=== PATIENT | male | born 1970 | race Caucasian/White ===

== ENCOUNTER 2018-02-23 00:55 | Outpatient (CLI) | payer BC, SELFPAY | END 2018-02-23 01:15 | PROVIDERS: PCP Family Medicine; Visit Provider Family Medicine | DX: R69 Illness, unspecified (principal) | CPT/HCPCS: 36415; 80048; 82550; 85652; 82085; 82607; 83735; 86140; 87476 ==

== ENCOUNTER 2018-02-23 09:08 | Outpatient (CLI) | payer BC, SELFPAY ==
[2018-02-23 13:02] LABS: Anion Gap 8.4 mmol/L (3-11); BUN 17 mg/dL (7-18); C-Reactive Protein 0.07 mg/dL (0.0-0.3); CO2 28.6 mmol/L (21.0-32.0); CREATININE 1.08 mg/dL (0.70-1.30); Calcium 9.1 mg/dL (8.5-10.1); Chloride 103 mmol/L (98-107); Creatine Kinase 92 U/L (39-308); Glucose 102 mg/dL (70-100); Potassium 4.8 mmol/L (3.5-5.1); Sodium 140 mmol/L (136-145)
[2018-02-23 13:37] LABS: ESR 8 MM/HR (0-15)
[2018-02-23 13:48] LABS: Vitamin B12 377 pg/mL (193-986)
[2018-02-24 14:28] LABS: Aldolase 2.9 U/L (<7.7)
== END 2018-02-23 09:28 ==
PROVIDERS: PCP Family Medicine; Visit Provider Family Medicine
DX: M79.10 Myalgia, unspecified site (principal); M79.2 Neuralgia and neuritis, unspecified; M35.8 Other specified systemic involvement of connective tissue
CPT/HCPCS: 36415; 80048; 82550; 85652; 82085; 82607; 83735; 86140; 87476

== ENCOUNTER 2018-03-03 08:15 | Emergency (ER) | payer BC, SELFPAY ==
[2018-03-03 08:20] VITALS: BP 115/73; PULSE 63; RESP 15; TEMP 36.5; O2SAT 97
--- NOTE | 2018-03-03 08:35 | DI.RAD_ITS ---
SYMPTOM/DIAGNOSIS: LT GREAT TOE PAIN LEFT FOOT: Three views. There is a nondisplaced fracture through the shaft of the proximal phalanx of the left great toe. The fracture does not appear to involve the joint spaces. No other fracture or dislocation is seen. There is soft tissue swelling about the great toe. No radiopaque foreign bodies are seen in the soft tissues. IMPRESSION: Nondisplaced fracture involving the proximal phalanx of the left great toe.
--- NOTE | 2018-03-03 08:36 | W.ED.GENAD ---
Discharge Plan Disposition Patient Disposition: HOME Condition: Good Discharge Details Chief Complaint: Orthopedic Clinical Impression: Closed fracture of left great toe Primary Care Provider: David Scott ED Provider: Bonilla Culp Home Meds and New Rx's Prescriptions: Continue zolmitriptan [Zomig] 5 MG tablet 5 mg PO DIRECTED Qty: 9 RF: 5 celecoxib [Celebrex] 200 MG capsule 200 mg PO DAILY Qty: 90 RF: 4 nystatin-triamcinolone 15 GM cream 1 dorinda Topical BID PRNQty: 3 RF: 4 gabapentin 300 MG capsule 300 mg PO HS Qty: 90 RF: 3 zolpidem 10 MG tablet 10 mg PO HS PRNQty: 30 RF: 1 metaxalone [Skelaxin] 800 mg tablet 800 mg PO QID PRN (Reason: back pain) Qty: 360 RF: 4 Discharge Instructions Instructions: Toe Fracture (ED) Discharge Data Discharge Physician: Bonilla Culp Medical Decision Making patient states over a week ago stubbed his left great toe on stairs, denies falling or other injuries. 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 Suspect contusion but will xray to eval for fx/dislocation. No redness warmth or swelling to suggest infection at this time xray shows lucency at the base of the great toe which could represent fx. Offered hard sole shoe vs sammie taping and he chose sammie taping. ADvised weight bearing as tolerated, nsaids and tylenol Differential Diagnosis fracture, contusion Imaging Data Radiologic Study: Attestation: I personally reviewed and interpreted this imaging study as follows: Imaging: X-Ray My impression: great toe fx HPI General Mode of arrival: ambulatory. Date/Time Provider Initiated Documentation: 03/03/18 08:32. Limitations to Documentation: no limitations. Information obtained by: patient. History of Present Illness 47 year old M presents to the emergency department with the chief complaint of left great toe pain, described as moderate, with intensity rated at 5. Quality is described as aching, and is localized to the left and lower extremity. Patient reports no radiation. Patient started experiencing this week(s) (1) and it has been constant. Rest improves symptom(s), Movement worsens symptoms . Patient notes no other symptoms.. Patient did receive the following treatments prior to arrival, none Related Data Home Medications Medication Instructions Recorded Confirmed zolmitriptan [Zomig] 5 mg PO DIRECTED #9 tab-cap 03/17/15 03/03/18 celecoxib [Celebrex] 200 mg PO DAILY #90 tab-cap 12/26/16 03/03/18 nystatin-triamcinolone 1 dorinda TOPICAL BID PRN #3 ea 01/30/17 03/03/18 gabapentin 300 mg PO HS #90 tab-cap 08/26/17 03/03/18 zolpidem 10 mg PO HS PRN #30 tab-cap 12/15/17 03/03/18 metaxalone 800 mg tablet 800 mg PO QID PRN #360 tab-cap 02/20/18 03/03/18 Previous Rx's Medication Instructions Recorded gabapentin 300 mg PO HS #90 tab-cap 08/26/17 metaxalone 800 mg tablet 800 mg PO QID PRN #360 tab-cap 02/20/18 Allergies Allergy/AdvReac Type Severity Reaction Status Date / Time No Known Allergies Allergy Unverified 03/03/18 08:26 General Stated Complaint: Orthopedic RORY: 4 Review of Systems Review of Systems All systems reviewed & are unremarkable except as noted in HPI and below Constitutional Denies chills, Denies fever(s) and Denies weakness Eyes Denies loss of vision ENT Denies change in voice Cardiovascular Denies chest pain and Denies dyspnea Respiratory Denies dyspnea Gastrointestinal Denies abdominal pain, Denies nausea and Denies vomiting Genitourinary Denies dysuria Musculoskeletal Denies joint swelling Integumentary/Breasts Denies rash Neurologic Denies loss of vision and Denies weakness Psychiatric Denies depression Endocrine Denies cold intolerance and Denies heat intolerance Allergic/Immunologic Denies urticaria PFSH Family History Mother No problems noted. Father Cerebrovascular accident Sister No problems noted. Brother No problems noted. Maternal Grandfather Heart disease Hyperlipidemia Paternal Grandfather Heart disease Maternal Grandmother Lung cancer Paternal Grandmother Hyperlipidemia Breast cancer Brother No problems noted. Brother No problems noted. Son No problems noted. Daughter No problems noted. 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 [employer] pets and animals: Yes pets and animals: dog(s) frequency: does not exercise Smoking/Tobacco Use Status: Former Tobacco Use passive smoking exposure: No alcohol intake: current alcohol intake frequency: a few times a week Alcohol type: beer substance use type: does not use daryl/restoration: Shinto special daryl needs: No Surgical History AVM (~02/1991) Exam Const General: no acute distress Orientation: alert HENMT Head: normal to inspection Ears: external ears normal General nose exam: external nose normal Mouth: moist mucous membranes Eyes General: appearance normal, both eyes and all related structures Neck Neck: normal visual inspection Resp Effort & Inspection: normal respiratory effort and able to speak in complete sentences Cardio Rate: regular rate Skin General skin exam: no rashes or lesions noted Neuro General: alert and oriented x3 Extrem General: full ROM, normal capillary refill and other (pain at base of great toe, no warmth swelling or redness) Psych Mental Status: mental status grossly normal Course Vital Signs Temperature 36.5 C 03/03/18 08:20 Pulse 63 03/03/18 08:20 Respiratory Rate 15 03/03/18 08:20 Blood Pressure 115/73 03/03/18 08:20 Pulse Oximetry 97 03/03/18 08:20 Temperature 36.5 C 03/03/18 08:20 Temperature Source Temporal Artery Scan 03/03/18 08:20 Pulse 63 03/03/18 08:20 Respiratory Rate 15 03/03/18 08:20 Respiratory Effort Non-Labored 03/03/18 08:24 Blood Pressure 115/73 03/03/18 08:20 Blood Pressure Position Sitting 03/03/18 08:20 Pulse Oximetry 97 03/03/18 08:20 Oxygen Delivery Method Room Air 03/03/18 08:20 Oxygen Flow Rate 0 03/03/18 08:20 Pain Level 3 03/03/18 08:28
--- NOTE | 2018-03-03 08:39 | ED.GENADUL_ITS ---
Discharge Plan Disposition Patient Disposition: HOME Condition: Good Discharge Details Chief Complaint: Orthopedic Clinical Impression: Closed fracture of left great toe Primary Care Provider: David Scott ED Provider: Bonilla Culp Home Meds and New Rx's Prescriptions: Continue zolmitriptan [Zomig] 5 MG tablet 5 mg PO DIRECTED Qty: 9 RF: 5 celecoxib [Celebrex] 200 MG capsule 200 mg PO DAILY Qty: 90 RF: 4 nystatin-triamcinolone 15 GM cream 1 dorinda Topical BID PRNQty: 3 RF: 4 gabapentin 300 MG capsule 300 mg PO HS Qty: 90 RF: 3 zolpidem 10 MG tablet 10 mg PO HS PRNQty: 30 RF: 1 metaxalone [Skelaxin] 800 mg tablet 800 mg PO QID PRN (Reason: back pain) Qty: 360 RF: 4 Discharge Instructions Instructions: Toe Fracture (ED) Discharge Data Discharge Physician: Bonilla Culp Medical Decision Making patient states over a week ago stubbed his left great toe on stairs, denies falling or other injuries. 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 Suspect contusion but will xray to eval for fx/ dislocation. No redness warmth or swelling to suggest infection at this time xray shows lucency at the base of the great toe which could represent fx. Offered hard sole shoe vs sammie taping and he chose sammie taping. ADvised weight bearing as tolerated, nsaids and tylenol Differential Diagnosis fracture, contusion Imaging Data Radiologic Study: Attestation: I personally reviewed and interpreted this imaging study as follows: Imaging: X-Ray My impression: great toe fx HPI General Mode of arrival: ambulatory . Date/Time Provider Initiated Documentation: 03/03/18 08:32 . Limitations to Documentation: no limitations . Information obtained by: patient . History of Present Illness 47 year old M presents to the emergency department with the chief complaint of left great toe pain, described as moderate, with intensity rated at 5. Quality is described as aching, and is localized to the left and lower extremity. Patient reports no radiation. Patient started experiencing this week(s) (1) and it has been constant. Rest improves symptom(s), Movement worsens symptoms . Patient notes no other symptoms.. Patient did receive the following treatments prior to arrival, none Related Data Home Medications Medication Instructions Recorded Confirmed zolmitriptan [Zomig] 5 mg PO DIRECTED #9 tab-cap 03/17/15 03/03/18 celecoxib [Celebrex] 200 mg PO DAILY #90 tab-cap 12/26/16 03/03/18 nystatin-triamcinolone 1 dorinda TOPICAL BID PRN #3 ea 01/30/17 03/03/18 gabapentin 300 mg PO HS #90 tab-cap 08/26/17 03/03/18 zolpidem 10 mg PO HS PRN #30 tab-cap 12/15/17 03/03/18 metaxalone 800 mg tablet 800 mg PO QID PRN #360 tab-cap 02/20/18 03/03/18 Previous Rx's Medication Instructions Recorded gabapentin 300 mg PO HS #90 tab-cap 08/26/17 metaxalone 800 mg tablet 800 mg PO QID PRN #360 tab-cap 02/20/18 Allergies Allergy/AdvReac Type Severity Reaction Status Date / Time No Known Allergies Allergy Unverified 03/03/18 08:26 General Stated Complaint: Orthopedic RORY: 4 Review of Systems Review of Systems All systems reviewed & are unremarkable except as noted in HPI and below Constitutional Denies chills, Denies fever(s) and Denies weakness Eyes Denies loss of vision ENT Denies change in voice Cardiovascular Denies chest pain and Denies dyspnea Respiratory Denies dyspnea Gastrointestinal Denies abdominal pain, Denies nausea and Denies vomiting Genitourinary Denies dysuria Musculoskeletal Denies joint swelling Integumentary/Breasts Denies rash Neurologic Denies loss of vision and Denies weakness Psychiatric Denies depression Endocrine Denies cold intolerance and Denies heat intolerance Allergic/Immunologic Denies urticaria PFSH Family History Mother No problems noted. Father Cerebrovascular accident Sister No problems noted. Brother No problems noted. Maternal Grandfather Heart disease Hyperlipidemia Paternal Grandfather Heart disease Maternal Grandmother Lung cancer Paternal Grandmother Hyperlipidemia Breast cancer Brother No problems noted. Brother No problems noted. Son No problems noted. Daughter No problems noted. Social History household members: other details: 4 current occupational status: employed current occupation: [employer] pets and animals: Yes pets and animals: dog(s) frequency: does not exercise Smoking/Tobacco Use Status: Former Tobacco Use passive smoking exposure: No alcohol intake: current alcohol intake frequency: a few times a week Alcohol type: beer substance use type: does not use daryl/quaker: Zoroastrian special daryl needs: No Surgical History AVM (~02/1991) Exam Const General: no acute distress Orientation: alert HENMT Head: normal to inspection Ears: external ears normal General nose exam: external nose normal Mouth: moist mucous membranes Eyes General: appearance normal, both eyes and all related structures Neck Neck: normal visual inspection Resp Effort & Inspection: normal respiratory effort and able to speak in complete sentences Cardio Rate: regular rate Skin General skin exam: no rashes or lesions noted Neuro General: alert and oriented x3 Extrem General: full ROM, normal capillary refill and other (pain at base of great toe , no warmth swelling or redness) Psych Mental Status: mental status grossly normal Course Vital Signs Temperature 36.5 C 03/03/18 08:20 Pulse 63 03/03/18 08:20 Respiratory Rate 15 03/03/18 08:20 Blood Pressure 115/73 03/03/18 08:20 Pulse Oximetry 97 03/03/18 08:20 Temperature 36.5 C 03/03/18 08:20 Temperature Source Temporal Artery Scan 03/03/18 08:20 Pulse 63 03/03/18 08:20 Respiratory Rate 15 03/03/18 08:20 Respiratory Effort Non-Labored 03/03/18 08:24 Blood Pressure 115/73 03/03/18 08:20 Blood Pressure Position Sitting 03/03/18 08:20 Pulse Oximetry 97 03/03/18 08:20 Oxygen Delivery Method Room Air 03/03/18 08:20 Oxygen Flow Rate 0 03/03/18 08:20 Pain Level 3 03/03/18 08:28
== END 2018-03-03 09:10 | disposition home or self-care (01) ==
PROVIDERS: Emergency Provider Emergency Medicine; PCP Family Medicine
DX: J44.1 Chronic obstructive pulmonary disease with (acute) exacerbation (principal); E11.9 Type 2 diabetes mellitus without complications; Z79.84 Long term (current) use of oral hypoglycemic drugs; I10 Essential (primary) hypertension
CPT/HCPCS: 36415; 93005; 99285; 73630; 93010

== ENCOUNTER 2018-05-30 04:25 | Emergency (ER) | payer BC, SELFPAY ==
[2018-05-30 04:31] VITALS: BP 112/60; PULSE 62; RESP 15; TEMP 37; O2SAT 98
--- NOTE | 2018-05-30 05:24 | W.ED.GENAD ---
Discharge Plan Disposition Patient Disposition: HOME Condition: Good Discharge Details Chief Complaint: Laceration Clinical Impression: Chin laceration, Viral illness, Orthostatic syncope Primary Care Provider: David Scott ED Provider: Tom Roach Ebro Meds and New Rx's Prescriptions: Continued bupropion HCl 150 mg tablet extended release 24 hr 150 mg PO QAM Qty: 30 RF: 3 zolpidem 10 mg tablet 10 mg PO HS PRN (Reason: insomnia) Qty: 30 RF: 1 zolmitriptan [Zomig] 5 MG tablet 5 mg PO DIRECTED Qty: 9 RF: 5 celecoxib [Celebrex] 200 MG capsule 200 mg PO DAILY Qty: 90 RF: 4 nystatin-triamcinolone 15 GM cream 1 dorinda Topical BID PRNQty: 3 RF: 4 metaxalone [Skelaxin] 800 mg tablet 800 mg PO QID PRN (Reason: back pain) Qty: 360 RF: 4 Discharge Instructions Instructions: Syncope (ED), Facial Laceration (ED) Additional Instructions: Continue to rest and take it easy over the weekend. Push fluids to stay hydrated. May continue [id number] cold medication as needed. Avoid shaving in the area of the laceration for the next five days. Watch for signs of infection which include increasing redness, pain, swelling, drainage. Follow-up with primary care next week if not feeling better. Return to ED if mental status changes, neurologic changes, chest pain, shortness of breath, further syncope, other concerns. Stand Alone Forms: Work Release Referrals: David Scott MD [Primary Care Provider] - Medical Decision Making Patient here with chin laceration that is fairly minor and amenable to skin adhesive. Please see procedure note. Patient tetanus status updated. Laceration sustained during a brief syncopal event. He has been ill for the last week. He is orthostatic here. We will place an IV and give a liter of fluid. Check EKG and basic labs. Suspect syncope related to orthostasis. Basic laboratory studies are fine. Repeat orthostatics after a liter of fluids are now normal. Patient can be discharged home to continue oral hydration, rest, [id number] cold medicine as needed. Told to watch for signs of infection. Follow-up with primary care next week as needed. Return to ED if mental status changes, neurologic changes, further syncope, chest pain, shortness of breath. Medical Records Medical records reviewed: Yes I reviewed the patient's medical records. Lab Data Lab results reviewed: Yes I reviewed the patient's lab results. ECG Data Attestation: I personally reviewed and interpreted this ECG (s) as follows: Prior ECG tracings: not available for review Interpretation: Sinus rhythm at a rate of 75. Normal axis and intervals. No acute ST changes. Normal EKG. HPI General Mode of arrival: ambulatory. Date/Time Provider Initiated Documentation: 05/30/18 04:53. Limitations to Documentation: no limitations. Information obtained by: patient. HPI Narrative: Patient presents to ED with small chin laceration. Patient reports being ill with intermittent fevers and chills all week. He had about a days worth of diarrhea which has resolved. He now has a head cold with congestion, sore throat, cough. He does not have chest pain or shortness of breath. He got up and was coughing up some phlegm. He then got lightheaded and thinks he maybe blacked out for a second. Hit his chin on something on the way down and has a little laceration. He has no headache. He has chronic unchanged back pain. He has no abdominal pain. He thinks he has been eating and drinking enough. He denies vomiting or diarrhea at this point. They were unable to get the bleeding to stop for a little bit and thought that the lac might need some stitches and came in for evaluation. Related Data Home Medications Medication Instructions Recorded Confirmed zolmitriptan [Zomig] 5 mg PO DIRECTED #9 tab-cap 03/17/15 05/30/18 celecoxib [Celebrex] 200 mg PO DAILY #90 tab-cap 12/26/16 05/30/18 nystatin-triamcinolone 1 dorinda TOPICAL BID PRN #3 ea 01/30/17 05/30/18 metaxalone 800 mg tablet 800 mg PO QID PRN #360 tab-cap 02/20/18 05/30/18 bupropion HCl XL 150 mg 24 hr 150 mg PO QAM #30 tab 04/24/18 05/30/18 tablet, extended release zolpidem 10 mg tablet 10 mg PO HS PRN #30 tab-cap 05/08/18 05/30/18 Previous Rx's Medication Instructions Recorded metaxalone 800 mg tablet 800 mg PO QID PRN #360 tab-cap 02/20/18 bupropion HCl XL 150 mg 24 hr 150 mg PO QAM #30 tab 04/24/18 tablet, extended release zolpidem 10 mg tablet 10 mg PO HS PRN #30 tab-cap 05/08/18 Allergies Allergy/AdvReac Type Severity Reaction Status Date / Time sertraline AdvReac Intermediate Diarrhea Verified 05/30/18 04:40 General Stated Complaint: Laceration RORY: 3 Review of Systems Constitutional Denies body ache(s), Reports chills, Reports fatigue, Reports fever(s), Denies headache(s), Reports malaise, Reports poor appetite and Reports weakness Eyes Denies eye discharge and Denies eye pain ENT Denies vertigo, Denies dizziness, Denies otalgia, Denies facial pain, Denies headache(s), Reports nasal congestion, Denies neck pain, Denies sinus pain, Reports sinus pressure and Reports sore throat Cardiovascular Denies chest pain, Denies diaphoresis, Reports syncope, Denies edema, Reports lightheadedness, Denies palpitations and Denies dyspnea Respiratory Denies chest congestion, Reports cough, Denies dyspnea and Denies wheezing Gastrointestinal Denies abdominal pain, Denies diarrhea, Denies nausea and Denies vomiting Genitourinary Denies hematuria, Denies dysuria and Denies flank pain Musculoskeletal Denies abnormal gait, Reports back pain (chronic problem/unchanged), Denies myalgias, Denies arthralgias, Denies neck pain and Denies numbness Integumentary/Breasts Denies erythema, Denies rash and Reports wounds Neurologic Denies abnormal speech, Denies abnormal gait, Denies confusion, Denies vertigo, Denies dizziness, Reports syncope, Denies headache(s), Denies focal weakness, Denies numbness, Denies sensory deficit and Reports weakness Psychiatric Denies confusion Endocrine Reports fatigue and Denies palpitations Allergic/Immunologic Denies wheezing FOR[facility] Medical History Major depression (Chronic) Migraine (Chronic 12/14/09) Low back pain (Chronic) Surgical History Malignant neoplasm of skin (Inactive) Arteriovenous malformation (Inactive 04/03/90) Social History household members: other details: 4 current occupational status: employed current occupation: [employer] pets and animals: Yes pets and animals: dog(s) frequency: does not exercise duration: 30-45 minutes/day Smoking/Tobacco Use Status: Former Tobacco Use passive smoking exposure: No alcohol intake: current alcohol intake frequency: a few times a week Alcohol type: beer substance use type: does not use daryl/jehovah's witness: Jew special daryl needs: No Exam Const General: cooperative, comfortable and no acute distress Orientation: alert and oriented x3 HENMT Head: normocephalic and atraumatic Ears: external ears normal and TM's normal bilaterally General nose exam: external nose normal Face and sinus: laceration (under chin 0.5 cm) and no tenderness Mouth: oral mucosae normal and oropharynx normal Throat: posterior oropharynx normal Eyes Pupils: PERRL EOM: EOM intact bilaterally Neck Neck: normal visual inspection, full ROM, trachea midline and supple Resp Effort & Inspection: normal respiratory effort Auscultation: clear to auscultation bilaterally Cardio Rate: regular rate Rhythm: regular rhythm Heart Sounds: S1 normal and S2 normal GI Palpation: soft and nontender Back/Spine/Pelvis Cervical Spine: cervical ROM normal, No pain with cervical ROM and No cervical spinal tenderness Skin Trauma: laceration Neuro General: alert, oriented x3, gait normal, no focal motor deficits and CN's II-XI intact bilaterally Cognition: normal cognition Speech: speech normal Extrem General: normal to inspection, full ROM and no clubbing, cyanosis or edema Course Vital Signs Temperature 98.6 F 05/30/18 04:31 Pulse 62 05/30/18 04:31 Respiratory Rate 15 05/30/18 04:31 Blood Pressure 112/60 05/30/18 04:31 Pulse Oximetry 98 05/30/18 04:31 Temperature 98.6 F 05/30/18 04:31 Temperature Source Temporal Artery Scan 05/30/18 04:31 Pulse 62 05/30/18 04:31 Respiratory Rate 15 05/30/18 04:31 Respiratory Effort 05/30/18 04:35 Blood Pressure 112/60 05/30/18 04:31 Blood Pressure Position Supine 05/30/18 04:31 Pulse Oximetry 98 05/30/18 04:31 Oxygen Delivery Method Room Air 05/30/18 04:31 Oxygen Flow Rate 0 05/30/18 04:31 Pain Level 0 05/30/18 04:35 Procedures Laceration Laceration 1: Site: face (under chin) Size (cm): 0.5 Description: linear Depth: simple, single layer Pre-repair: irrigated extensively Skin layer closed with: other (skin glue)
[2018-05-30] MEDS: Lactated Ringers 1,000 ML 1000 ML IV (05:28)
[2018-05-30] MEDS: Tetanus & Diphtheria Tox,ADULT 0.5 ML VIAL IM (05:29)
[2018-05-30 05:33] LABS: HCT 43.1 % (40.0-50.0); HGB 14.9 g/dL (13.5-17.5); Mean Corp. HGB Concentration 34.6 g/dL (32.0-36.0); Mean Corpuscular Hemoglobin 31.2 pg (27.0-33.0); Mean Corpuscular Volume 90.4 fL (80-95); Mean Platelet Volume 9.3 fL (8.0-11.0); Platelet Count 229 x1000/uL (130-400); RBC 4.77 m/cumm (4.50-6.00); RBC Distribution Width 12.4 % (11.8-14.1); White Blood Cell Count 7.93 k/cumm (4.4-10.8)
--- NOTE | 2018-05-30 05:39 | ED.GENADUL_ITS ---
Discharge Plan Disposition Patient Disposition: HOME Condition: Good Discharge Details Chief Complaint: Laceration Clinical Impression: Chin laceration, Viral illness, Orthostatic syncope Primary Care Provider: David Scott ED Provider: Tom Roach [place] Meds and New Rx's Prescriptions: Continued bupropion HCl 150 mg tablet extended release 24 hr 150 mg PO QAM Qty: 30 RF: 3 zolpidem 10 mg tablet 10 mg PO HS PRN (Reason: insomnia) Qty: 30 RF: 1 zolmitriptan [Zomig] 5 MG tablet 5 mg PO DIRECTED Qty: 9 RF: 5 celecoxib [Celebrex] 200 MG capsule 200 mg PO DAILY Qty: 90 RF: 4 nystatin-triamcinolone 15 GM cream 1 dorinda Topical BID PRNQty: 3 RF: 4 metaxalone [Skelaxin] 800 mg tablet 800 mg PO QID PRN (Reason: back pain) Qty: 360 RF: 4 Discharge Instructions Instructions: Syncope (ED), Facial Laceration (ED) Additional Instructions: Continue to rest and take it easy over the weekend. Push fluids to stay hydrated. May continue mbpb-[id number] cold medication as needed. Avoid shaving in the area of the laceration for the next five days. Watch for signs of infection which include increasing redness, pain, swelling, drainage. Follow-up with primary care next week if not feeling better. Return to ED if mental status changes, neurologic changes, chest pain, shortness of breath, further syncope, other concerns. Stand Alone Forms: Work Release Referrals: David Scott MD [Primary Care Provider] - Medical Decision Making Patient here with chin laceration that is fairly minor and amenable to skin adhesive. Please see procedure note. Patient tetanus status updated. Laceration sustained during a brief syncopal event. He has been ill for the last week. He is orthostatic here. We will place an IV and give a liter of fluid. Check EKG and basic labs. Suspect syncope related to orthostasis. Basic laboratory studies are fine. Repeat orthostatics after a liter of fluids are now normal. Patient can be discharged home to continue oral hydration, rest, [id number] cold medicine as needed. Told to watch for signs of infection. Follow-up with primary care next week as needed. Return to ED if mental status changes, neurologic changes, further syncope, chest pain, shortness of breath. Medical Records Medical records reviewed: Yes I reviewed the patient's medical records. Lab Data Lab results reviewed: Yes I reviewed the patient's lab results. ECG Data Attestation: I personally reviewed and interpreted this ECG (s) as follows: Prior ECG tracings: not available for review Interpretation: Sinus rhythm at a rate of 75. Normal axis and intervals. No acute ST changes. Normal EKG. HPI General Mode of arrival: ambulatory . Date/Time Provider Initiated Documentation: 05/30/18 04:53 . Limitations to Documentation: no limitations . Information obtained by: patient . HPI Narrative: Patient presents to ED with small chin laceration. Patient reports being ill with intermittent fevers and chills all week. He had about a days worth of diarrhea which has resolved. He now has a head cold with congestion, sore throat, cough. He does not have chest pain or shortness of breath. He got up and was coughing up some phlegm. He then got lightheaded and thinks he maybe blacked out for a second. Hit his chin on something on the way down and has a little laceration. He has no headache. He has chronic unchanged back pain. He has no abdominal pain. He thinks he has been eating and drinking enough. He denies vomiting or diarrhea at this point. They were unable to get the bleeding to stop for a little bit and thought that the lac might need some stitches and came in for evaluation. Related Data Home Medications Medication Instructions Recorded Confirmed zolmitriptan [Zomig] 5 mg PO DIRECTED #9 tab-cap 03/17/15 05/30/18 celecoxib [Celebrex] 200 mg PO DAILY #90 tab-cap 12/26/16 05/30/18 nystatin-triamcinolone 1 dorinda TOPICAL BID PRN #3 ea 01/30/17 05/30/18 metaxalone 800 mg tablet 800 mg PO QID PRN #360 tab-cap 02/20/18 05/30/18 bupropion HCl XL 150 mg 24 hr 150 mg PO QAM #30 tab 04/24/18 05/30/18 tablet, extended release zolpidem 10 mg tablet 10 mg PO HS PRN #30 tab-cap 05/08/18 05/30/18 Previous Rx's Medication Instructions Recorded metaxalone 800 mg tablet 800 mg PO QID PRN #360 tab-cap 02/20/18 bupropion HCl XL 150 mg 24 hr 150 mg PO QAM #30 tab 04/24/18 tablet, extended release zolpidem 10 mg tablet 10 mg PO HS PRN #30 tab-cap 05/08/18 Allergies Allergy/AdvReac Type Severity Reaction Status Date / Time sertraline AdvReac Intermediate Diarrhea Verified 05/30/18 04:40 General Stated Complaint: Laceration RORY: 3 Review of Systems Constitutional Denies body ache(s), Reports chills, Reports fatigue, Reports fever(s), Denies headache(s), Reports malaise, Reports poor appetite and Reports weakness Eyes Denies eye discharge and Denies eye pain ENT Denies vertigo, Denies dizziness, Denies otalgia, Denies facial pain, Denies headache(s), Reports nasal congestion, Denies neck pain, Denies sinus pain, Reports sinus pressure and Reports sore throat Cardiovascular Denies chest pain, Denies diaphoresis, Reports syncope, Denies edema, Reports lightheadedness, Denies palpitations and Denies dyspnea Respiratory Denies chest congestion, Reports cough, Denies dyspnea and Denies wheezing Gastrointestinal Denies abdominal pain, Denies diarrhea, Denies nausea and Denies vomiting Genitourinary Denies hematuria, Denies dysuria and Denies flank pain Musculoskeletal Denies abnormal gait, Reports back pain (chronic problem/unchanged), Denies myalgias, Denies arthralgias, Denies neck pain and Denies numbness Integumentary/Breasts Denies erythema, Denies rash and Reports wounds Neurologic Denies abnormal speech, Denies abnormal gait, Denies confusion, Denies vertigo, Denies dizziness, Reports syncope, Denies headache(s), Denies focal weakness, Denies numbness, Denies sensory deficit and Reports weakness Psychiatric Denies confusion Endocrine Reports fatigue and Denies palpitations Allergic/Immunologic Denies wheezing [facility] Medical History Major depression (Chronic) Migraine (Chronic 12/14/09) Low back pain (Chronic) Surgical History Malignant neoplasm of skin (Inactive) Arteriovenous malformation (Inactive 04/03/90) Social History household members: other details: 4 current occupational status: employed 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 [employer] pets and animals: Yes pets and animals: dog(s) frequency: does not exercise duration: 30-45 minutes/day Smoking/Tobacco Use Status: Former Tobacco Use passive smoking exposure: No alcohol intake: current alcohol intake frequency: a few times a week Alcohol type: beer substance use type: does not use daryl/hindu: Cheondoism special daryl needs: No Exam Const General: cooperative, comfortable and no acute distress Orientation: alert and oriented x3 HENMT Head: normocephalic and atraumatic Ears: external ears normal and TM's normal bilaterally General nose exam: external nose normal Face and sinus: laceration (under chin 0.5 cm) and no tenderness Mouth: oral mucosae normal and oropharynx normal Throat: posterior oropharynx normal Eyes Pupils: PERRL EOM: EOM intact bilaterally Neck Neck: normal visual inspection, full ROM, trachea midline and supple Resp Effort & Inspection: normal respiratory effort Auscultation: clear to auscultation bilaterally Cardio Rate: regular rate Rhythm: regular rhythm Heart Sounds: S1 normal and S2 normal GI Palpation: soft and nontender Back/Spine/Pelvis Cervical Spine: cervical ROM normal, No pain with cervical ROM and No cervical spinal tenderness Skin Trauma: laceration Neuro General: alert, oriented x3, gait normal, no focal motor deficits and CN's II-XI intact bilaterally Cognition: normal cognition Speech: speech normal Extrem General: normal to inspection, full ROM and no clubbing, cyanosis or edema Course Vital Signs Temperature 98.6 F 05/30/18 04:31 Pulse 62 05/30/18 04:31 Respiratory Rate 15 05/30/18 04:31 Blood Pressure 112/60 05/30/18 04:31 Pulse Oximetry 98 05/30/18 04:31 Temperature 98.6 F 05/30/18 04:31 Temperature Source Temporal Artery Scan 05/30/18 04:31 Pulse 62 05/30/18 04:31 Respiratory Rate 15 05/30/18 04:31 Respiratory Effort 05/30/18 04:35 Blood Pressure 112/60 05/30/18 04:31 Blood Pressure Position Supine 05/30/18 04:31 Pulse Oximetry 98 05/30/18 04:31 Oxygen Delivery Method Room Air 05/30/18 04:31 Oxygen Flow Rate 0 05/30/18 04:31 Pain Level 0 05/30/18 04:35 Procedures Laceration Laceration 1: Site: face (under chin) Size (cm): 0.5 Description: linear Depth: simple, single layer Pre-repair: irrigated extensively Skin layer closed with: other (skin glue)
[2018-05-30 05:40] LABS: Anion Gap 9.5 mmol/L (3-11); BUN 16 mg/dL (7-18); CO2 27.5 mmol/L (21.0-32.0); CREATININE 1.13 mg/dL (0.70-1.30); Chloride 103 mmol/L (98-107); Glucose 125 mg/dL (70-100); Magnesium 1.9 mg/dL (1.8-2.4); Potassium 4.1 mmol/L (3.5-5.1); Sodium 140 mmol/L (136-145)
[2018-05-30 06:15] VITALS: BP 103/69; BP 104/65; BP 105/61; PULSE 68; PULSE 74; PULSE 76; RESP 16; TEMP 36.7; O2SAT 98
[2018-05-30 06:27] VITALS: BP 105/61; PULSE 68; RESP 16; TEMP 36.7; O2SAT 98
== END 2018-05-30 06:31 | disposition home or self-care (01) ==
PROVIDERS: Emergency Provider Emergency Medicine; PCP Family Medicine
DX: R55 Syncope and collapse (principal); I95.1 Orthostatic hypotension; S01.81XA Laceration without foreign body of other part of head, initial encounter; W01.198A Fall on same level from slipping, tripping and stumbling with subsequent striking against other object, initial encounter; B34.9 Viral infection, unspecified
CPT/HCPCS: 12011; 36415; 80048; 85027; 90471; 93005; 96360; 99284; 83735; 93010

== ENCOUNTER 2018-08-14 01:32 | Outpatient (CLI) | payer BC, SELFPAY ==
[2018-08-14 10:55] LABS: Creatine Kinase 126 U/L (39-308)
[2018-08-15 17:07] LABS: Aldolase 2.8 U/L (<7.7)
== END 2018-08-14 01:52 ==
PROVIDERS: PCP Family Medicine; Visit Provider Family Medicine
DX: M79.10 Myalgia, unspecified site (principal)
CPT/HCPCS: 36415; 82550; 82085

== ENCOUNTER 2019-02-19 01:32 | Outpatient (CLI) | payer BC, SELFPAY ==
[2019-02-19 13:16] LABS: Anion Gap 7.8 mmol/L (3-11); BUN 13 mg/dL (7-18); CO2 30.2 mmol/L (21.0-32.0); CREATININE 1.04 mg/dL (0.70-1.30); Calcium 9.2 mg/dL (8.5-10.1); Calculated LDL 171 mg/dL; Chloride 103 mmol/L (98-107); Cholesterol 230 mg/dL (50-200); Glucose 99 mg/dL (70-100); HDL Cholesterol 50 mg/dL (40-60); Potassium 4.7 mmol/L (3.5-5.1); Sodium 141 mmol/L (136-145); Triglyceride 46 mg/dL (30-150)
== END 2019-02-19 01:52 ==
PROVIDERS: PCP Family Medicine; Visit Provider Family Medicine
DX: Z00.00 Encounter for general adult medical examination without abnormal findings (principal); I10 Essential (primary) hypertension
CPT/HCPCS: 36415; 80048; 80061

== ENCOUNTER 2019-06-28 10:45 | Day surgery (SDC) | payer OTHER, SELFPAY ==
--- NOTE | 2019-06-28 07:02 | W.COLOREPORT ---
Date of service: 06/28/19 Time of Service: 11:38 Colonoscopy Report Date of procedure: 06/28/19 Pre-op diagnosis general: Colon Cancer Screening Post-op diagnosis procedure note: other (? small polyp) Procedure: Colonoscopy with polypectomy Surgeon: Ashwini Restrepo Anesthesia proc note operative: other (General/ ASA 2/Breanna Higgins CRNA) Estimated blood loss (mL): 3 Pathology: none sent (sigmoid biopsy) Complications: None Disposition: same day Indications: 49 y/o male with history of depression and chronic low back pain presents for his first colonoscopy screening pre-op. He denies a family history of colon cancer. He denies any changes in bowel habits, expressing he has occasional blood noted on stool. He also describes that frequently his morning BM's are very loose. Denies black tarry stools, abdominal pain, diarrhea or constipation. He denies constitutional symptoms. Risks, benefits and complications have been reviewed. Complications include but are not limited to bleeding, pain, perforation, missed small lesion/polyp, sore throat, aspiration and adverse reaction to the medications. Questions were entertained and answered to their satisfaction and they wished to proceed. No guarantees were given or implied. Prep: Miralax/Dulcolax Procedure Start Time: 11:38 Procedure End Time: 12:05 Retraction Time: 19 minutes Findings: ? small sigmoid polyp vs normal tissue Procedure Description: After informed consent was obtained the patient was taken to the procedure room and placed in a left decubitous position. Monitors were applied and a time out was done. The patients name, date of , procedure, allergies to medications and metal in their body was reviewed. The patient was then sedated. Once sedated and comfortable a rectal exam was done. External exam was normal. Internal exam revealed a normal sphincter tone and no palpable masses. The prostate felt smooth. The scope was then introduced and retro-flexed. No internal hemorrhoids, masses or polyps were identified on retro-flexion. The scope was then advanced to the cecum without difficulty. The TI and appendiceal orifice were identified. The prep was adequate. The scope was then slowly retracted over 19 minutes back into the rectum. There was an area in the sigmoid colon that looked like possibly a small polyp so it was removed with cold forceps. The scope was removed and the patient was woken up and taken back to Same day surgery in stable condition. The patient tolerated the procedure well and there were no immediate complications. Follow up: Follow up will depend on pathology results, unless they develop changes in bowel habits or other new gastrointestinal complaints.
--- NOTE | 2019-06-28 07:03 | W.PM.DSUDISC ---
Discharge Plan Disposition Patient Disposition: HOME Condition: Good Discharge Details Reason For Visit: SCREENING Attending Provider: Ashwini Restrepo Primary Care Provider: David Scott Home Meds and New Rx's Prescriptions: Continued zolpidem 10 mg tablet 10 mg PO HS PRN (Reason: insomnia) Qty: 30 RF: 1 baclofen 10 mg tablet 10 mg PO TID PRN (Reason: muscle spasm) Qty: 30 RF: 1 zolmitriptan [Zomig] 5 MG tablet 5 mg PO DIRECTED Qty: 9 RF: 5 celecoxib [Celebrex] 200 MG capsule 200 mg PO DAILY Qty: 90 RF: 4 nystatin-triamcinolone 15 GM cream 1 dorinda Topical BID PRNQty: 3 RF: 4 metaxalone 800 mg Tablet 800 mg PO TID RF: 0 Discontinued polyethylene glycol 3350 17 gram/dose powder 238 g PO ONCE Qty: 238 RF: 0 bisacodyl [Dulcolax (bisacodyl)] 5 mg tablet,delayed release (DR/EC) 5 mg PO ONCE Qty: 4 RF: 0 Discharge Instructions Additional Instructions: Findings: ? a small polyp Follow up: most likely 10 years Please call if you develop: fevers >101.5 Nausea or Vomiting Abdominal pain that is not transient DAY SURGERY UNIT POST ENDOSCOPY INSTRUCTIONS 1. Because there will be medication in your system for the next 24 hours, you may feel a little sleepy. Your coordination will be affected. Therefore: a. Do not drive or operate dangerous equipment for 24 hours. b. Do not drink alcohol beverages for 24 hours (not even beer). c. Plan to go home and rest for the day. 2. Generally there are no restrictions on your activity after a day or so has gone by, but you may feel a bit fatigued for a few days. 3 After you arrive home you may have a light meal and return to a normal diet as you can tolerate it without feeling sick to your stomach. 4. After surgery, you may feel pain or discomfort. This should be only transient, but if it persists please contact your doctor. 5. If there are any questions regarding the findings of your procedure, please feel free to contact your doctor. 6. If you are unable to contact your doctor with a problem, contact the hospital at [phone]. 7. Continue all your regular medications unless directed otherwise. I understand the above instructions and have no questions. Signature of Patient or Responsible Adult Escort Date/Time Name of Responsible Adult Escort Signature of Nurse Date/Time Activity:: Activity as Tolerated Diet:: As Tolerated Discharge Orders Discharge Orders: Discharge Order (Routine); Ordered 06/28/19 Ordered By: Ashwini Restrepo
[2019-06-28 10:50] VITALS: BP 103/70; PULSE 49; RESP 18; TEMP 36.5; O2SAT 98
[2019-06-28] MEDS: Lactated Ringers 1,000 ML 80 ML IV (11:25)
--- NOTE | 2019-06-28 12:02 | BOWEL_PTH ---
PATIENT: Naveed England LOC: [facility]ORM U#:[id number] AGE/SX: 49/M ROOM: RE06/28/[address]: Ashwini Restrepo MD : [id number] BED: DIS: 06/28/2019 SPEC #: [id number] RECD: 06/28/19 18:04 STATUS: CASSANDRA RE #: [id number] ELSIE: 06/28/19 12:[address]: Ashwini Restrepo DEPT: Surgical Specimen RECD BY: Lala Lehman ENTERED: 06/28/19 18:04 SP TYPE: Bowel OTHR DR: David Scott MD Tissues: 1 - BIOPSY BOWEL Procedures: GROSS AND MICRO LEVEL 4 Comments: [id number]
[2019-06-28 12:44] VITALS: BP 81/47; PULSE 40; RESP 18; TEMP 36.2; O2SAT 100
[2019-06-28 13:00] VITALS: BP 95/56; O2SAT 100
== END 2019-06-28 13:15 | disposition home or self-care (01) ==
LOC: SUR 10:46
PROVIDERS: PCP Family Medicine; Visit Provider Surgery
PROC: 0DJD8ZZ Inspection of Lower Intestinal Tract, Via Natural or Artificial Opening Endoscopic (ICD-10-PCS; CPT 45378; principal; 2019-06-28 12:15)
DX: Z12.11 Encounter for screening for malignant neoplasm of colon (principal); K63.89 Other specified diseases of intestine
CPT/HCPCS: 45380; 88305

== ENCOUNTER 2020-02-28 16:07 | Outpatient (CLI) | payer OTHER, SELFPAY ==
--- NOTE | 2020-02-28 15:30 | DI.RAD_ITS ---
EXAM: XR KNEE LT 4V AP,LAT,JARED,PAT CLINICAL HISTORY: rt knee pain TECHNIQUE: COMPARISON: No exams were available for comparison FINDINGS: Four views were obtained. Cartilaginous joint spaces appear fairly well maintained. No significant bony or soft tissue abnormality seen. There is tiny metallic radiodensity projected anterior to vicente lla at level of the proximal patellar tendon, please correlate regarding any history of foreign body or tenderness this site. IMPRESSION: RADIATION DOSE DELIVERED: Total DLP
== END 2020-02-28 16:27 ==
PROVIDERS: Visit Provider Physician Assistant Surgical
DX: S83.412A Sprain of medial collateral ligament of left knee, initial encounter (principal)
CPT/HCPCS: 73564

== ENCOUNTER 2020-05-10 04:19 | Outpatient (CLI) | payer OTHER, SELFPAY ==
[2020-05-10 12:53] LABS: HCT 42.8 % (40.0-50.0); HGB 14.2 g/dL (13.5-17.5); MCHC 33.2 % (32.0-36.0); MCV 90.3 fL (80-95); MPV 9.5 fL (8.0-11.0); Platelet Count 261 10^3/uL (130-400); RBC 4.74 10^6/uL (4.36-5.78); RDW 11.8 % (11.8-14.1); RDW-SD 39.1 fL; WBC 5.58 10^3/uL (4.4-10.8)
[2020-05-10 13:25] LABS: ALT 54 U/L (16-63); AST 40 U/L (15-37); Alkaline Phosphatase 72 U/L (46-116); Anion Gap 8.2 mmol/L (3-11); BUN 18 mg/dL (7-18); Bilirubin, Total 0.7 mg/dL (0.2-1.0); CO2 27.8 mmol/L (21.0-32.0); CREATININE 1.14 mg/dL (0.70-1.30); Chloride 104 mmol/L (98-107); Glucose 107 mg/dL (74-106); Potassium 4.6 mmol/L (3.5-5.1); Sodium 140 mmol/L (136-145); Total Protein 6.9 g/dL (6.4-8.2)
[2020-05-10 14:18] LABS: Calculated LDL 189 mg/dL (<100); Cholesterol 251 mg/dL (<200); HDL Cholesterol 45 mg/dL (40-60); Triglyceride 89 mg/dL (<150)
== END 2020-05-10 04:39 ==
DX: Z00.00 Encounter for general adult medical examination without abnormal findings (principal); E78.5 Hyperlipidemia, unspecified; G47.00 Insomnia, unspecified
CPT/HCPCS: 36415; 80053; 80061; 85027

== ENCOUNTER 2020-08-10 14:54 | Outpatient (CLI) | payer OTHER, SELFPAY ==
--- NOTE | 2020-08-10 13:52 | DI.RAD_ITS ---
EXAM: XR CHEST 2V PA LATERAL CLINICAL HISTORY: cough, pain with inspiration, fever r06.02,R05 Cough, R50.9 Fever, U07.1 TECHNIQUE: 2D digital imaging was performed. COMPARISON: No exams were available for comparison FINDINGS: The lungs are poorly inflated particularly on the PA view. The heart size is normal. There are vagu e hazy bilateral basilar increased densities no focal area of consolidation or effusion is seen. The re is no pneumothorax. The bones are unremarkable. IMPRESSION: Bibasilar infiltrates. DATA REPOSITORY: RADIATION DOSE DELIVERED:
== END 2020-08-10 15:14 ==
PROVIDERS: Visit Provider Nurse Practitioner
DX: R50.9 Fever, unspecified; U07.1 COVID-19; R91.8 Other nonspecific abnormal finding of lung field
CPT/HCPCS: 71046

== ENCOUNTER 2021-02-14 03:24 | Outpatient (CLI) | payer OTHER, SELFPAY ==
[2021-02-14 10:11] LABS: Source Nasal/Nares
[2021-02-14 12:32] LABS: COVID-19 PCR Negative (Negative)
== END 2021-02-14 03:25 | disposition home or self-care (01) ==
LOC: LBO 03:24
PROVIDERS: Visit Provider Student in an Organized Health Care Education/Training Program
DX: Z20.822 Contact with and (suspected) exposure to COVID-19 (principal)
CPT/HCPCS: 87635

== ENCOUNTER 2021-02-16 10:46 | Day surgery (SDC) | payer OTHER, SELFPAY ==
[2021-02-16] VITALS (10 sets, daily range): BP systolic 85–121; BP diastolic 42–84; PULSE 42–59; RESP 11–18; TEMP 36–36.5; O2SAT 97–100; BMI 24.7
[2021-02-16] MEDS: Lactated Ringers 1,000 ML 80 ML IV ×2 (11:37→13:17)
--- NOTE | 2021-02-16 12:04 | W.ANESPRE ---
General Info Date of Service Date Performed: 02/16/21 Height: 5 ft 8 in Weight: 73.7 kg Body Mass Index (BMI): 24.7 Surgical Procedure: Operation Date: 02/16/21 12:40 Proposed Procedures Side Surgeon p Knee Arthroscopy Left Eusebio Sethi MD Meds Allergies and Home Medications Allergies Allergy/AdvReac Type Severity Reaction Status Date / Time sertraline AdvReac Intermediate Diarrhea Verified 02/16/21 09:38 Home Medication Medication Instructions Recorded zolmitriptan [Zomig] 5 mg PO DIRECTED #9 tab-cap 03/17/15 nystatin-triamcinolone 1 dorinda TOPICAL BID PRN #3 ea 01/30/17 zolpidem 10 mg tablet 10 mg PO HS PRN #30 tab-cap 05/29/20 celecoxib 200 mg capsule 200 mg PO DAILY #90 tab-cap 10/04/20 metaxalone 800 mg tablet 800 mg PO TID PRN #90 tab 11/03/20 Current Visit Medications: Current Medications Generic Name Dose Route Start Last Admin Trade Name Freq PRN Reason Stop Dose Admin Ringer's Solution 1,000 mls @ 80 mls/hr 02/16/21 06:00 02/16/21 11:37 IV 03/17/21 23:59 80 mls/hr INFUSION MEDARDO Administration Cefazolin Sodium/Dextrose 2 gm in 50 mls @ 100 mls/hr 02/16/21 06:00 Ancef Duplex IVPB 03/17/21 23:59 PREOP MEDARDO IV Miscellaneous Supplies 1 each 02/16/21 06:00 Iv Access IV 03/17/21 23:59 DIRECTED MEDARDO Sodium Chloride 0 ml 02/16/21 06:00 Normal Saline Flush 10 Ml Syr IV 03/17/21 23:59 PRN PRN Sodium Chloride 0 ml 02/16/21 06:00 Normal Saline 10 Ml Vial IJ 03/17/21 23:59 DIRECTED PRN Sterile Water 0 ml 02/16/21 06:00 Water,Injection,Sterile 10 Ml Vial IJ 03/17/21 23:59 DIRECTED PRN PFSH Active Problems Active Problems: Problem Status Onset Code Follow up Z09 Lab test positive for detection of COVID-19 virus U07.1 Fever R50.9 Cough R05 SOB (shortness of breath) R06.02 Tonsil stone J35.8 Chronic tonsillitis J35.01 Encounter for annual physical exam Z00.00 Internal derangement of left knee 11/23/19 M23.92 Sprain of medial collateral ligament of left knee S83.412A Sacroiliac joint dysfunction of both sides M53.3 Acquired deviated nasal septum 07/26/13 J34.2 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 History of tobacco use Z87.891 Hoarse R49.0 Hydronephrosis 04/03/00 N13.30 Hyperlipidemia E78.5 Hypertrophy of nasal turbinates 07/26/13 J34.3 Insomnia G47.00 Lymphadenopathy R59.1 Peripheral neuralgia M79.2 Restless leg syndrome, uncontrolled 03/17/15 G25.81 Right lateral epicondylitis 09/08/15 M77.11 Vitamin D deficiency 04/01/16 E55.9 Depression F32.9 Encounter for therapeutic procedure Z51.89 Major depression F32.9 Migraine 12/14/09 G43.909 Low back pain M54.5 Medical History Medical History AVM (arteriovenous malformation) brain Encounter for annual physical exam Low back pain Major depression Migraine (12/14/09) Surgical History Surgical History Arteriovenous malformation (04/03/90) left frontal; S/P resection H/O colonoscopy (~06/2019) [place]- negative exam. 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 Tobacco Smoking/Tobacco Use Status: Current every day Tobacco Type: smokeless tobacco Smokeless tobacco user: chewing tobacco Passive smoking exposure: Yes Quit Status: considering quitting Alcohol Alcohol Intake: current Alcohol intake frequency: a few times a week Alcohol type: beer Substance Use Substance use: Never Substance use type: does not use Vital Signs and Lab Results Vital Signs Most Recent Vital Signs in EMR: Most Recent Vital Signs Temp Pulse Resp BP Pulse Ox 36.5 C 49 L 18 94/61 L 99 02/16/21 11:00 02/16/21 11:00 02/16/21 11:00 02/16/21 11:00 02/16/21 11:00 Lab Results Blood Type / Crossmatch: No Data to Display Complete Blood Count: No Data to Display Complete Metabolic Panel: No Data to Display Liver Function Panel: No Data to Display Coagulation Panel: No Data to Display Cardiac Panel: No Data to Display Arterial Blood Gas: No Data to Display Venous Blood Gas: No Data to Display Pancreas Panel: No Data to Display Thyroid Panel: No Data to Display Infectious Disease: Coronavirus (COVID-19)(PCR) Negative (Negative) 02/14/21 08:45 02/14/21 Coronavirus 2019 Source Nasal/Nares 02/14/21 08:45 02/14/21 Blood Cultures: No Data to Display Toxicology Panel: No Data to Display Anesthesia Assessment and Plan Anesthesia History Personal History: No History of Anesthesia Complications Family History: No Family History of Anesthesia Complications Exercise Tolerance Exercise Tolerance: Metabolic Equivalents>4 Pertinent Negatives Pertinent Negatives: No Symptoms of GERD, No Major Cardiovascular Symptoms or Complaints, No Major Pulmonary Symptoms or Complaints and No History of CVA/TIA (Last seizure 1990 prior to clipping AVM) Cardiac & Pulmonary Exam Cardiac Exam: Normal S1/S2 Heart Sounds Pulmonary Exam: Clear Bilateral Breath Sounds Airway Exam Known Difficult Airway: No Mallampati Class: 1 Mouth Opening: Normal (> 3cm) Thyromental Distance: Greater than 3 cm Neck Range of Motion: Full ROM Neck Circumference: Normal Teeth Condition: Normal Dentition Airway Comments: High angle narrow palate ASA Classification ASA Score: ASA 2 Emergency Case?: No NPO Status NPO Status: NPO Clears >2 hours, Solids >8 hours Anesthesia Plan Resuscitation Status: Full Code Anesthesia Technique: General Anesthesia Airway Planned: LMA Monitors Used: Standard Monitors
--- NOTE | 2021-02-16 12:07 | HPE_ITS ---
Date of service: 02/16/21 Time of Service: 12:07 Assessment and Plan Assessment and plan (1) Internal derangement of left knee: Status: Acute Assessment and plan: Bryson is a 50-year-old who has persistent left knee pain from an injury in December 2019. He has tried a host of nonoperative treatments but continues to be limited. He is unable obtain an MRI and my suspicion is that he has internal derangement, likely medial meniscal tear, the left knee. Therefore recommended diagnostic arthroscopy with meniscal intervention and synovectomy debridement is indicated about the left knee. I reviewed technical details of the case. I discussed the risk of the procedure to include bleeding, infection, pain, stiffness, damage to nerves and vessels, damage to muscle and tendons, worsening arthritis, blood clot. Despite these risk, he elects to proceed. History of Present Illness History of Present Illness Chief Complaint: left knee pain Narrative: Bryson is a 50-year-old who has had persistent left knee pain after injury at work in December 2019. He has tried a host of nonoperative options including injection, exercise, activity modification. Despite these options he has continued to have symptoms about the left knee. His symptoms are mostly mechanical in nature. They are worse with any turning or twisting. He has continued to have pain limitations. 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 He has no sick contacts. He has no change in his health. He has had no other issues with seizure or brain issues or headache since his initial evaluation and treatment for aneurysm. He has a negative COVID-19 test. Review of Systems All systems reviewed & are unremarkable except as noted in HPI and below PFSH Medical History AVM (arteriovenous malformation) brain Encounter for annual physical exam Low back pain Major depression Migraine (12/14/09) Surgical History Arteriovenous malformation (04/03/90) left frontal; S/P resection H/O colonoscopy (~06/2019) AK- negative exam. 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 Father Stroke Heart disease Sister No problems noted. Brother Diabetes Maternal Grandfather Heart disease Hyperlipidemia Paternal Grandfather , AGE 51 Heart disease Maternal Grandmother Lung cancer Paternal Grandmother Hyperlipidemia Breast cancer Brother No problems noted. Brother No problems noted. Son No problems noted. Daughter No problems noted. 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 [employer] Pets and animals: Yes Pets and animals: dog(s) Sexually active: Yes Do you think of yourself as: straight/heterosexual Current gender identity: male What is your relationship status?: How often do you talk on the phone with friends or family?: once per week How often do you get together with friends or relatives?: once per week How often do you attend scientologist or adventist services?: 1-3 times per year Do you belong to any clubs or organized social groups?: no Panel score (0-1 are the most socially isolated patients): 1 What type of physical activity do you participate in: decline to answer Duration: 30-45 minutes/day Frequency: does not exercise Nisreen/Hinduism: Voodoo Special nisreen needs: No Seatbelt use: sometimes Helmet use: Yes Helmet use: always Drive intox or ride w/intox 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 Working smoke detector in home: Yes Fire extinguisher in home: Yes Carbon monox detector in home: Yes Firearms in home: Yes Firearms unloaded and locked: No (not locked, not loaded) Do you feel safe at home: Yes Do you feel safe in your relationship?: Yes Meds Allergies and Home Medications Allergies Allergy/AdvReac Type Severity Reaction Status Date / Time sertraline AdvReac Intermediate Diarrhea Verified 02/16/21 09:38 Home Medications Medication Instructions Recorded Confirmed Type zolmitriptan [Zomig] 5 mg PO DIRECTED #9 tab-cap 03/17/15 02/16/21 History nystatin-triamcinolone 1 dorinda TOPICAL BID PRN #3 ea 01/30/17 02/16/21 History zolpidem 10 mg tablet 10 mg PO HS PRN #30 tab-cap 05/29/20 02/16/21 Rx celecoxib 200 mg capsule 200 mg PO DAILY #90 tab-cap 10/04/20 02/16/21 Rx metaxalone 800 mg tablet 800 mg PO TID PRN #90 tab 11/03/20 02/16/21 Rx Exam Const General: cooperative, healthy appearing, comfortable and no acute distress Nutritional Appearance: average body habitus Orientation: alert, awake and oriented x3 Resp Effort & Inspection: normal respiratory effort Auscultation: clear to auscultation bilaterally Cardio Rate: regular rate Rhythm: regular rhythm Results Last Vital Signs Temp 36.5 C 02/16/21 11:00 Pulse 49 L 02/16/21 11:00 Resp 18 02/16/21 11:00 BP 94/61 L 02/16/21 11:00 Pulse Ox 99 02/16/21 11:00
[2021-02-16] MEDS: ceFAZolin 2 GM/50 ML BAG IVPB (12:30)
[2021-02-16] MEDS: Bupivacaine 0.5% Pres-Free 30 ML VIAL (13:09)
--- NOTE | 2021-02-16 13:22 | PDOC.DSDIS_ITS ---
Discharge Plan Disposition Patient Disposition: HOME Condition: Good Discharge Details Reason For Visit: Right Knee Internal Derangement Attending Provider: Eusebio Sethi Primary Care Provider: Charlee Muhammad Home Meds and New Rx's Prescriptions: New hydrocodone-acetaminophen 5-325 mg tablet 1 tab PO Q6H PRN (Reason: pain) Qty: 12 RF: 0 acetaminophen 500 mg tablet 1,000 mg PO Q8H PRN (Reason: pain) Qty: 90 RF: 3 Continued zolmitriptan [Zomig] 5 MG tablet 5 mg PO DIRECTED Qty: 9 RF: 5 nystatin-triamcinolone 15 GM cream 1 dorinda Topical BID PRNQty: 3 RF: 4 metaxalone 800 mg tablet 800 mg PO TID PRN (Reason: muscle pain) Qty: 90 RF: 3 zolpidem 10 mg tablet 10 mg PO HS PRN (Reason: insomnia) Qty: 30 RF: 1 Changed celecoxib [Celebrex] 200 mg capsule 200 mg PO BIDWMEAL Qty: 90 RF: 4 Discharge Instructions Stand Alone Forms: Navdeep Knee Arthroscopy Referrals: Eusebio Sethi MD [ [facility]FF [facility]YSICIAN] - Equipment/Supplies: Partial Weight Bearing Crutches Activity:: Activity as Tolerated Remove Dressings/Wound Care:: 72 hours Shower/Bathe:: 72 hours Discharge Orders Discharge Orders: Discharge Order (Routine); Ordered 02/16/21 Ordered By: Eusebio Sethi DS: Diagnosis Discharge Diagnosis (1) Internal derangement of left knee: Status: Acute
[2021-02-16] MEDS: fentaNYL 100 MCG/2 ML VIAL IVP (14:15)
--- NOTE | 2021-02-16 14:20 | W.ANESPOSTOP ---
Postoperative Evaluation Date, Time and Location Date Performed: 02/16/21 Time Performed: 14:20 Patient Location: Day Surgery Unit Vital Signs Most Recent Imported Vital Signs: Most Recent Vital Signs Temp Pulse Resp BP Pulse Ox 36.4 C L 52 L 15 112/75 99 02/16/21 14:12 02/16/21 14:12 02/16/21 14:12 02/16/21 14:12 02/16/21 14:12 Pain Score Most Recent Pain Score: Most Recent Pain Score Pain Level 5 02/16/21 14:12 Assessment Mental Status: Awake (Alert & Oriented to Patient Baseline) Airway and Respiratory Function: Patent airway with normal (patient baseline) respiratory exam Cardiovascular Function: Hemodynamically Stable Hydration Status: Adequately Hydrated Nausea & Vomiting: No Nausea or Vomiting Pain: Pt. Denies Any Pain Peripheral Nerve Block: Patient did not receive a nerve block
[2021-02-16] MEDS: HYDROcodone 5/Acetaminophen 325 TAB PO (15:02)
--- NOTE | 2021-02-17 11:45 | W.PM.OP ---
Date of service: 02/16/21 Time of Service: 13:08 Operative Note Operative Note DATE OF PROCEDURE: 02/16/21 PRE-OP DIAGNOSIS: Left Knee Internal Derangement POST-OP DIAGNOSIS: other Left Knee Medial Meniscus Tear PROCEDURE: Left Knee Arthroscopic Partial Medial Menisectomy SURGEON: Eusebio Sethi ANESTHESIA TYPE: General LMA/ETT Refer to Anesthesia Record ESTIMATED BLOOD LOSS: 5 PATHOLOGY: none sent TOURNIQUET TIME: 0 COMPLICATIONS: None Patient was transported to: PACU Patient's condition: stable Indications: I have seen Bryson in clinic for symptoms of a meniscus tear. This was confirmed based on MRI and exam findings. Nonoperative measures were exhausted but disability and pain persisted. I discussed knee arthroscopy with meniscal intervention with the patient. I reviewed the risks of the procedure to include, but not limited to, bleeding, infection, pain, stiffness, damage to nerves or vessels, recurrence, blood clot. Despite these risks, the patient elected to proceed. Findings: A diagnostic arthroscopy was performed with the following findings: Suprapatellar Pouch: No significant inflammation, no loose bodies Medial Compartment: Complex undersurface tear of the posterior horn the medial meniscus with a peripheral vertical component, intact meniscal root, mild grade I chondromalacia of the femur and tibia, no loose bodies Notch: ACL and PCL were intact Lateral Compartment: No meniscal tear, intact meniscal root, no significant chondromalacia or signs of arthritis, no loose bodies Patellofemoral Compartment: No significant chondromalacia, no apparent patellar maltracking Procedure Description: Bryson was greeted in the preoperative holding area where the correct side was identified and marked. The consent was reviewed with the patient and signed. The history and physical was updated. All questions were answered. He was taken back to the operating room. The patient was placed into the supine position on the operating room table. All bony prominences were well padded. Prophylactic antibiotics in the form of cefazolin were administered. The left leg was then prepped with Chloraprep and draped in a standard fashion with stockinette and extremity drape. A timeout to confirm correct identity, side and site, procedure, allergies, anesthesia, and medical concerns was performed. The leg was placed into a pneumatic leg acuña, [id number]. A standard lateral portal was made at the lateral border of the patella tendon in line with the inferior pole of the patella, soft spot. The skin and deep tissue was incised sharply and the blunt trochar was inserted atraumatically. A diagnostic arthroscopy was performed and the findings are listed above. The suprapatellar pouch had no significant inflammatory change. The patellofemoral articulation showed no articular damage as well as good tracking. The lateral gutter had no loose bodies and the medial gutter had no loose bodies. The knee was brought into some valgus stress in extension to open the medial compartment. A medial portal was made, localized by a spinal needle. The portal was created with an #11 blade through skin and capsule under direct visualization avoiding any meniscal injury. A probe was then inserted into the medial compartment. The medial compartment was fully inspected. The chondral surface of the tibia showed mild, grade 1, chondromalacia and the surface of the femur showed the same. The medial meniscus had a complex undersurface tear of the posterior horn with a primary vertical component. The primary vertical component was in the posterior horn was quite peripheral on the superior side. However, on the inferior side there was notable fraying and complexity of the tear which extended to horizontal component. After evaluation, the meniscus was debrided down to a stable base using a series of biters and arthroscopic harriet. It was probed afterwards to confirm that the tear had been removed and the meniscus was stable. The notch was then inspected which showed an intact ACL and an intact PCL. The leg was then brought into a figure of 4 position. The lateral compartment was fully inspected with the arthroscope and a probe. The chondral surface of the lateral femur showed no significant chondromalacia. The chondral surface of the lateral tibia showed no significant chondromalacia. The lateral meniscus had no meniscal tear. The arthroscope was brought back into the suprapatellar pouch and the leg was in full extension. The knee was thoroughly irrigated with the arthroscopic fluid on high flow and pressure. Inflow was stopped and excess fluid was removed. The wounds were closed with 4-0 Nylon. They were dressed with Xeroform, 4x4 gauze, ABD pad, Kerlix and an MINERVA wrap. A cryo-cuff was applied. The patient tolerated the procedure well and was returned to the Same Day Surgery area in a stable condition suffering no known complication.
== END 2021-02-16 15:40 | disposition home or self-care (01) ==
PROVIDERS: Visit Provider Student in an Organized Health Care Education/Training Program
PROC: (CPT 29870; principal; 2021-02-16 12:30)
DX: M23.222 Derangement of posterior horn of medial meniscus due to old tear or injury, left knee (principal); M94.262 Chondromalacia, left knee
CPT/HCPCS: 29881; J0690; J1100; J1885; J2250; J2405; J3010

== ENCOUNTER 2021-09-10 01:19 | Outpatient (CLI) | payer OTHER, SELFPAY ==
[2021-09-10 11:33] LABS: Source Nasal/Nares
[2021-09-10 19:01] LABS: COVID-19 PCR Negative (Negative)
== END 2021-09-10 01:20 | disposition home or self-care (01) ==
LOC: LBO 01:19
PROVIDERS: PCP Nurse Practitioner Family; Visit Provider Student in an Organized Health Care Education/Training Program
DX: Z20.822 Contact with and (suspected) exposure to COVID-19 (principal); Z01.818 Encounter for other preprocedural examination
CPT/HCPCS: 87635

== ENCOUNTER 2021-09-11 10:22 | Day surgery (SDC) | payer OTHER, SELFPAY ==
[2021-09-11] VITALS (13 sets, daily range): BP systolic 90–133; BP diastolic 58–83; PULSE 38–48; RESP 12–16; TEMP 36.3–36.7; O2SAT 95–100; BMI 23.9
[2021-09-11] MEDS: Acetaminophen 500 MG TAB 1000 MG PO (11:01)
[2021-09-11] MEDS: Celecoxib 200 MG CAP 400 MG PO (11:02)
--- NOTE | 2021-09-11 11:13 | W.ANESPRE ---
General Info Date of Service Date Performed: 09/11/21 Height: 5 ft 8 in Weight: 71.5 kg Body Mass Index (BMI): 23.9 Surgical Procedure: Operation Date: 09/11/21 13:25 Proposed Procedure Side Surgeon p Knee Arthroscopy Left Eusebio Sethi MD Meds Allergies and Home Medications Allergies Allergy/AdvReac Type Severity Reaction Status Date / Time sertraline AdvReac Intermediate Diarrhea Verified 09/11/21 10:46 Home Medication Medication Instructions Recorded zolmitriptan 5 mg tablet (Zomig) 5 mg PO DIRECTED #9 tab-cap 03/17/15 nystatin-triamcinolone 100,000 1 dorinda TOPICAL BID PRN #3 ea 01/30/17 unit/g-0.1 % topical cream metaxalone 800 mg tablet 800 mg PO TID PRN #90 tab 11/03/20 celecoxib 200 mg capsule (Celebrex) 200 mg PO BIDWMEAL #90 tab-cap 02/16/21 zolpidem 10 mg tablet 10 mg PO HS PRN #30 tab-cap 02/16/21 acetaminophen 500 mg tablet 1,000 mg PO Q8H PRN #90 tab 03/12/21 Current Visit Medications: Current Medications Generic Name Dose Route Start Last Admin Trade Name Freq PRN Reason Stop Dose Admin Acetaminophen 1,000 mg 09/11/21 06:00 09/11/21 11:01 Acetaminophen 500 Mg Tab PO 1,000 mg PREOP MEDARDO Administration Celecoxib 400 mg 09/11/21 06:00 09/11/21 11:02 Celecoxib 200 Mg Cap PO 400 mg PREOP MEDARDO Administration Ringer's Solution 1,000 mls @ 80 mls/hr 09/11/21 06:00 IV 10/10/21 23:59 INFUSION MEDARDO Cefazolin Sodium/Dextrose 2 gm in 50 mls @ 100 mls/hr 09/11/21 06:00 Ancef Duplex IVPB 10/10/21 23:59 PREOP MEDARDO IV Miscellaneous Supplies 1 each 09/11/21 06:00 Iv Access IV 10/10/21 23:59 DIRECTED MEDARDO Sodium Chloride 0 ml 09/11/21 06:00 Normal Saline Flush 10 Ml Syr IV 10/10/21 23:59 PRN PRN Sodium Chloride 0 ml 09/11/21 06:00 Normal Saline 10 Ml Vial IJ 10/10/21 23:59 DIRECTED PRN Sterile Water 0 ml 09/11/21 06:00 Water,Injection,Sterile 10 Ml Vial IJ 10/10/21 23:59 DIRECTED PRN PFSH Active Problems Active Problems: Problem Status Onset Code Sacroiliac joint dysfunction of both sides M53.3 Acquired deviated nasal septum 07/26/13 J34.2 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 History of tobacco use Z87.891 Hyperlipidemia E78.5 Insomnia G47.00 Low back pain M54.5 Lymphadenopathy R59.1 Migraine 12/14/09 G43.909 Peripheral neuralgia M79.2 Restless leg syndrome, uncontrolled 03/17/15 G25.81 Right lateral epicondylitis 09/08/15 M77.11 Vitamin D deficiency 04/01/16 E55.9 Major depression F32.9 Depression F32.9 Sprain of medial collateral ligament of left knee S83.412A Encounter for annual physical exam Z00.00 Chronic tonsillitis J35.01 Tonsil stone J35.8 Medical History Medical History AVM (arteriovenous malformation) brain 1991 steel clips in situ COVID-19 08/2020 Hydronephrosis (04/03/00) right/left; Lab test positive for detection of COVID-19 virus (~08/2020) Medical History Comments:: pt has 3 clips in brain post AVM surgery. Chewed tobacco yesterday. Surgical History Surgical History H/O colonoscopy (~06/2019) AK- negative exam. History of elbow surgery Bilater elbow surgery Tear of medial meniscus of left knee, current S/P L knee arthroscopy: 02/16/2021 Tobacco Smoking/Tobacco Use Status: Current every day Tobacco Type: smokeless tobacco Smokeless tobacco user: chewing tobacco Passive smoking exposure: Yes Second hand exposure: Yes Alcohol Alcohol Intake: current Alcohol intake frequency: a few times a month Alcohol type: beer Substance Use Substance use: Never Substance use type: does not use Vital Signs and Lab Results Vital Signs Most Recent Vital Signs in EMR: Most Recent Vital Signs Temp Pulse Resp BP Pulse Ox 36.7 C 48 L 16 97/75 L 98 09/11/21 10:55 09/11/21 10:55 09/11/21 10:55 09/11/21 10:55 09/11/21 10:55 Lab Results Blood Type / Crossmatch: No Data to Display Complete Blood Count: No Data to Display Complete Metabolic Panel: No Data to Display Liver Function Panel: No Data to Display Coagulation Panel: No Data to Display Cardiac Panel: No Data to Display Arterial Blood Gas: No Data to Display Venous Blood Gas: No Data to Display Pancreas Panel: No Data to Display Thyroid Panel: No Data to Display Infectious Disease: Coronavirus (COVID-19)(PCR) Negative (Negative) 09/10/21 08:29 09/10/21 Coronavirus 2019 Source Nasal/Nares 09/10/21 08:29 09/10/21 Blood Cultures: No Data to Display Toxicology Panel: No Data to Display Anesthesia Assessment and Plan Anesthesia History Personal History: No History of Anesthesia Complications Family History: No Family History of Anesthesia Complications Exercise Tolerance Exercise Tolerance: Metabolic Equivalents>4 Pertinent Negatives Pertinent Negatives: No Symptoms of GERD, No Major Cardiovascular Symptoms or Complaints and No Major Pulmonary Symptoms or Complaints Cardiac & Pulmonary Exam Cardiac Exam: Normal S1/S2 Heart Sounds Pulmonary Exam: Clear Bilateral Breath Sounds Implantable Cardiac Device Does patient have a Pacemaker or an ICD?: No Airway Exam Known Difficult Airway: No Mallampati Class: 1 Mouth Opening: Normal (> 3cm) Thyromental Distance: Greater than 3 cm Neck Range of Motion: Full ROM Neck Circumference: Normal Teeth Condition: Normal Dentition Airway Comments: High angle narrow palate ASA Classification ASA Score: ASA 2 Emergency Case?: No NPO Status NPO Status: NPO Clears >2 hours, Solids >8 hours Anesthesia Plan Resuscitation Status: Full Code Anesthesia Technique: General Anesthesia Airway Planned: LMA Monitors Used: Standard Monitors
[2021-09-11] MEDS: Lactated Ringers 1,000 ML 80 ML IV (11:15)
--- NOTE | 2021-09-11 12:05 | W.PREOPHP ---
Assessment and Plan Assessment and plan (1) Internal derangement of left knee: Status: Acute Assessment and plan: Bryson is a 51 year-old who continues have some pain with his left knee. Given the failure of conservative treatment options I have recommended proceeding with diagnostic arthroscopy since he is unable to tolerate MRI. I previously discussed this with him in the office. Reviewed the risk of the procedure to include bleeding, infection, pain, stiffness, continued symptoms. Despite these risks,he agreed to proceed. History of Present Illness Narrative: Bryson is a 51-year-old who injured his left knee at work. He underwent a partial medial meniscectomy previously and had improvement of his symptoms. Unfortunate, he has had some lingering pain about the medial side of the knee which has worsened. While its not severe as it was previously continues to have pain about the medial side of the knee which is somewhat mechanical in nature. Has gotten better with an injection. Given his inability obtain MRI he is here today for knee arthroscopy for diagnosis and likely intervention if pathology is detected. Review of Systems All systems reviewed & are unremarkable except as noted in HPI and below PFSH All Active Problems (Updated 09/11/21 @ 12:08 by Eusebio Sethi MD) Internal derangement of left knee (Acute) 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) Acquired deviated nasal septum (Chronic 07/26/13) Gastric motor function disorder (Chronic) History of tobacco use (Chronic) Hyperlipidemia (Chronic) Insomnia (Chronic) Low back pain (Chronic) Lymphadenopathy (Acute) left posterior cervical node Migraine (Chronic 12/14/09) Peripheral neuralgia (Chronic) Restless leg syndrome, uncontrolled (Chronic 03/17/15) Right lateral epicondylitis (Chronic 09/08/15) Vitamin D deficiency (Chronic 04/01/16) Major depression (Chronic) Depression (Chronic) Sprain of medial collateral ligament of left knee (Acute) Encounter for annual physical exam (Acute) Chronic tonsillitis (Chronic) Tonsil stone (Chronic) Medical History AVM (arteriovenous malformation) brain 1990 steel clips in situ COVID-19 08/2020 Hydronephrosis (04/03/00) right/left; Lab test positive for detection of COVID-19 virus (~08/2020) Surgical History H/O colonoscopy (~06/2019) AK- negative exam. History of elbow surgery Bilater elbow surgery Tear of medial meniscus of left knee, current S/P L knee arthroscopy: 02/16/2021 Family History Mother No problems noted. Father Stroke Heart disease Sister No problems noted. Brother Diabetes Maternal Grandfather Heart disease Hyperlipidemia Paternal Grandfather , AGE 51 Heart disease Maternal Grandmother Lung cancer Paternal Grandmother Hyperlipidemia Breast cancer Brother No problems noted. Brother No problems noted. Son No problems noted. Daughter No problems noted. 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 [employer] Pets and animals: Yes Pets and animals: dog(s) Sexually active: Yes Do you think of yourself as: straight/heterosexual Current gender identity: male What is your relationship status?: How often do you talk on the phone with friends or family?: once per week How often do you get together with friends or relatives?: once per week How often do you attend cheondoism or uatsdin services?: 1-3 times per year Do you belong to any clubs or organized social groups?: no Panel score (0-1 are the most socially isolated patients): 1 What type of physical activity do you participate in: decline to answer Duration: 30-45 minutes/day Frequency: does not exercise Nisreen/Mormonism: Oriental Orthodox Special nisreen needs: No Seatbelt use: sometimes Helmet use: Yes Helmet use: always Drive 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 or ride w/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 Working smoke detector in home: Yes Fire extinguisher in home: Yes Carbon monox detector in home: Yes Firearms in home: Yes Firearms unloaded and locked: No (not locked, not loaded) Do you feel safe at home: Yes Do you feel safe in your relationship?: Yes Meds Allergies and Home Medications Allergies Allergy/AdvReac Type Severity Reaction Status Date / Time sertraline AdvReac Intermediate Diarrhea Verified 09/11/21 10:46 Home Medications Medication Instructions Recorded Confirmed Type zolmitriptan 5 mg tablet (Zomig) 5 mg PO DIRECTED #9 tab-cap 03/17/15 09/11/21 History nystatin-triamcinolone 100,000 1 dorinda TOPICAL BID PRN #3 ea 01/30/17 09/11/21 History unit/g-0.1 % topical cream metaxalone 800 mg tablet 800 mg PO TID PRN #90 tab 11/03/20 09/11/21 Rx celecoxib 200 mg capsule (Celebrex) 200 mg PO BIDWMEAL #90 tab-cap 02/16/21 09/11/21 Rx zolpidem 10 mg tablet 10 mg PO HS PRN #30 tab-cap 02/16/21 09/11/21 Rx acetaminophen 500 mg tablet 1,000 mg PO Q8H PRN #90 tab 03/12/21 09/11/21 Rx Exam Resp Effort & Inspection: normal respiratory effort Auscultation: clear to auscultation bilaterally Cardio Palpation: normal PMI Rate: regular rate Rhythm: regular rhythm Results Last Vital Signs Temp 36.7 C 09/11/21 10:55 Pulse 48 L 09/11/21 10:55 Resp 16 09/11/21 10:55 BP 97/75 L 09/11/21 10:55 Pulse Ox 98 09/11/21 10:55
[2021-09-11] MEDS: ceFAZolin 2 GM/50 ML BAG IVPB (12:12)
[2021-09-11] MEDS: Bupivacaine 0.5% Pres-Free 30 ML VIAL (12:41)
--- NOTE | 2021-09-11 12:56 | W.PM.DSUDISC ---
Discharge Plan Disposition Patient Disposition: HOME Condition: Good Discharge Details Reason For Visit: L knee arthroscopy Attending Provider: Eusebio Sethi Primary Care Provider: Boni Vidales Home Meds and New Rx's Prescriptions: New acetaminophen 500 mg tablet 1,000 mg PO TID Qty: 90 0RF hydrocodone-acetaminophen 5-325 mg tablet 1 tab PO Q6H PRN (Reason: pain) Qty: 6 0RF Continued zolmitriptan [Zomig] 5 MG tablet 5 mg PO DIRECTED Qty: 9 5RF Label Comments: pt reports he hasnt taken for 4-5 years Rx Instructions: TAKE AT ONSET OF HEADACHE. MAY REPEAT IN 30 MIN. NOT TO EXCEED 3 PER 24 HOURS. nystatin-triamcinolone 15 GM cream 1 dorinda Topical BID PRNQty: 3 4RF metaxalone 800 mg tablet 800 mg PO TID PRN (Reason: muscle pain) Qty: 90 3RF zolpidem 10 mg tablet 10 mg PO HS PRN (Reason: insomnia) Qty: 30 1RF celecoxib [Celebrex] 200 mg capsule 200 mg PO BIDWMEAL Qty: 90 4RF Rx Instructions: TAKE WITH FOOD. Discontinued acetaminophen 500 mg tablet 1,000 mg PO Q8H PRN (Reason: pain) Qty: 90 3RF Discharge Instructions Stand Alone Forms: [facility] Knee Arthroscopy Referrals: Eusebio Sethi MD [ [facility] STAFF PHYSICIAN] - Equipment/Supplies: Partial Weight Bearing Crutches Activity:: Activity as Tolerated Remove Dressings/Wound Care:: 48 hours Shower/Bathe:: 48 hours Diet:: As Tolerated Discharge Orders Discharge Orders: Discharge Order (Routine); Ordered 09/11/21 Ordered By: Leonard Ramos DS: Diagnosis Discharge Diagnosis (1) Internal derangement of left knee: Status: Acute
--- NOTE | 2021-09-11 14:13 | W.ANESNERVE ---
Nerve Block Single Injection Procedure Date and Time Date Performed: 09/11/21 Procedure Start: 14:01 Location Where Procedure Performed Procedure Location: PACU Reason Performed: Postoperative Analgesia Requesting Provider: Eusebio Sethi Timeout Performed Timeout Performed: Yes Monitoring Used ECG, Blood Pressure, SpO2, ETCO2 and See EMR for corresponding vital signs Sterility Sterility: Hand Hygiene, Surgical Cap, Surgical Mask, Sterile Gloves, Eye Protection and Chlorhexidine Sedation Given During Procedure Sedation Given (Indicate Dose Given): No Sedation given Patient Mental Status Patient Mental Status: Awake Nerve Block 1st Nerve Block: Laterality: Left Block Type: Adductor Canal Needle / Catheter Used: 100mm SonoPlex II Local Anesthetic Bolus (Indicate Dose Given): Lidocaine used for local infiltration of skin, Injected in 3-5ml increments after negative blood aspiration and Bupivacaine 0.25% Dose:: 10mL Additives (Indicate Dose Given): None Ultrasound: Sterile probe cover and gel used Ultrasound Image Saved?: Yes Nerve Stimulator: Not Used Paresthesia: None Procedure Tolerated: No Complications Procedure Outcome: Successful Performed By: Omayra Nguyen
--- NOTE | 2021-09-11 14:36 | W.ANESPOSTOP ---
Postoperative Evaluation Date, Time and Location Date Performed: 09/11/21 Time Performed: 14:36 Patient Location: Day Surgery Unit Vital Signs Most Recent Imported Vital Signs: Most Recent Vital Signs Temp Pulse Resp BP Pulse Ox 36.3 C L 46 L 12 121/69 100 09/11/21 14:14 09/11/21 14:14 09/11/21 14:14 09/11/21 14:14 09/11/21 14:14 Pain Score Most Recent Pain Score: Most Recent Pain Score Pain Level 5 09/11/21 14:14 Assessment Mental Status: Awake (Alert & Oriented to Patient Baseline) Airway and Respiratory Function: Patent airway with normal (patient baseline) respiratory exam Cardiovascular Function: Hemodynamically Stable Hydration Status: Adequately Hydrated Nausea & Vomiting: No Nausea or Vomiting Pain: Pain is tolerable per patient Peripheral Nerve Block: Regional nerve block not resolved at time of post operative discharge
--- NOTE | 2021-09-11 22:15 | W.PM.OP ---
Date of service: 09/11/21 Time of Service: 13:00 Operative Note Operative Note DATE OF PROCEDURE: 09/11/21 PRE-OP DIAGNOSIS: Left Knee Intenal Derangement POST-OP DIAGNOSIS: other (Complex posterior medial meniscus tear involving the root) PROCEDURE: Arthroscopic Left Knee Partial Medial Menisectomy SURGEON: Eusebio Sethi ANESTHESIA TYPE: General LMA/ETT Refer to Anesthesia Record ESTIMATED BLOOD LOSS: 0 PATHOLOGY: none sent COMPLICATIONS: None Patient was transported to: PACU Patient's condition: stable Indications: I have seen Bryson in clinic for symptoms of a meniscus tear. He is unable to have an MRI and he underwent an diagnostic arthroscopy initially and a medial meniscus tear was identified. This was a highly complex tear involving almost the entirity of the posterior horn of the medial meniscus. He did well initially but continued to have some pain about the medial and posterior side of the knee which was somewhat mechanical. Non-operative options were continued but he continued witih pain. The pain resolved with an intra-articular injection. Given this I recommended proceeding with knee arthroscopy for diagnosis with likely intervention of the medial meniscus for recurrent medial meniscal tear. I reviewed the risks of the procedure to include, but not limited to, bleeding, infection, pain, stiffness, damage to nerves or vessels, recurrence, blood clot. Despite these risks, the patient elected to proceed. Findings: A diagnostic arthroscopy was performed with the following findings: Suprapatellar Pouch: No significant inflammation, No loose bodies Medial Compartment: Complex medial meniscal tear involving the remnant posterior meniscus into the root, grade I chondromalacia without focal defects, No loose bodies Notch: ACL and PCL were intact Lateral Compartment: No meniscal tear, Intact meniscal root, No significant chondromalacia or signs of arthritis, No loose bodies Patellofemoral Compartment: Minimal chondromalaca, No apparent patellar maltracking Procedure Description: Bryson was greeted in the preoperative holding area where the correct side was identified and marked. The consent was reviewed with the patient and signed. The history and physical was updated. All questions were answered. He was taken back to the operating room. The patient was placed into the supine position on the operating room table. A nonsterile tourniquet was placed high onto the leg but not used. All bony prominences were well padded. Prophylactic antibiotics in the form of Cefazolin were administered. The left leg was then prepped with Chloraprep and draped in a standard fashion with stockinette and extremity drape. A timeout to confirm correct identity, side and site, procedure, allergies, anesthesia, and medical concerns was performed. The leg was placed into a pneumatic leg acuña, [id number]. A standard lateral portal was made at the lateral border of the patella tendon in line with the inferior pole of the patella, soft spot. The skin and deep tissue was incised sharply and the blunt trochar was inserted atraumatically. A diagnostic arthroscopy was performed and the findings are listed above. The suprapatellar pouch had no significant inflammatory change. The patellofemoral articulation showed mild chondromalcia as well as good tracking. The lateral gutter had no loose bodies and the medial gutter had no loose bodies. The knee was brought into some valgus stress in extension to open the medial compartment. A medial portal was made, localized by a spinal needle. The portal was created with an #11 blade through skin and capsule under direct visualization avoiding any meniscal injury. A probe was then inserted into the medial compartment. The medial compartment was fully inspected. The chondral surface of the tibia showed minimal Grade I chondromalacia and the surface of the femur showed Grade I chondromalacia, without focal defects. The medial meniscus had a complex tear in the remnant meniscus posteriorly. This was complex tearing at the free edge and extending into the root. After evaluation, the meniscus was debrided down to a stable base using a series of biters and arthroscopic harriet. It was probed afterwards to confirm that the tear had been removed and the meniscus was stable. The notch was then inspected which showed an intact ACL and an intact PCL. The leg was then brought into a figure of 4 position. The lateral compartment was fully inspected with the arthroscope and a probe. The chondral surface of the lateral femur showed no significant chondromalacia. The chondral surface of the lateral tibia showed no significant chondromalacia. The lateral meniscus had no meniscal tear. The arthroscope was brought back into the suprapatellar pouch and the leg was in full extension. The knee was thoroughly irrigated with the arthroscopic fluid on high flow and pressure. Inflow was stopped and excess fluid was removed. The wounds were closed with 4-0 Nylon. They were dressed with Xeroform, 4x4 gauze, ABD pad, Kerlix and an MINERVA wrap. A cryo-cuff was applied. The patient tolerated the procedure well and was returned to the Same Day Surgery area in a stable condition suffering no known complication.
== END 2021-09-11 15:30 | disposition home or self-care (01) ==
PROVIDERS: PCP Nurse Practitioner Family; Visit Provider Student in an Organized Health Care Education/Training Program
PROC: (CPT 29870; principal; 2021-09-11 13:15)
DX: S83.232A Complex tear of medial meniscus, current injury, left knee, initial encounter (principal); E55.9 Vitamin D deficiency, unspecified; E78.5 Hyperlipidemia, unspecified; X58.XXXA Exposure to other specified factors, initial encounter; Y93.9 Activity, unspecified; Y99.0 Civilian activity done for income or pay
CPT/HCPCS: 29881; 76942; J0690; J1100; J1885; J2405; J2704

== ENCOUNTER 2022-01-31 07:13 | Outpatient (CLI) | payer BC, SELFPAY ==
[2022-02-01 16:37] LABS: Campylobacter PCR Negative (Negative); Salmonella PCR Negative (Negative); Shiga Toxin PCR Negative (Negative); Shigella/Enteroinvasive Ecoli Negative (Negative)
== END 2022-01-31 07:14 | disposition home or self-care (01) ==
LOC: LBN 07:20
PROVIDERS: PCP Nurse Practitioner Family; Visit Provider Nurse Practitioner Family
DX: R19.7 Diarrhea, unspecified (principal)
CPT/HCPCS: 87505; 87177

== ENCOUNTER 2022-02-14 10:07 | Outpatient (REF) | payer BC, SELFPAY | END 2022-02-14 10:08 | disposition home or self-care (01) | LOC: LBN 10:07 | PROVIDERS: PCP Nurse Practitioner Family; Visit Provider Physician Assistant | DX: J02.9 Acute pharyngitis, unspecified (principal) | CPT/HCPCS: 87070 ==

== ENCOUNTER 2022-04-18 02:53 | Outpatient (CLI) | payer BC, SELFPAY ==
[2022-04-18 12:34] LABS: Calculated LDL 140 mg/dL (<100); Cholesterol 205 mg/dL (<200); HDL Cholesterol 53 mg/dL (40-60); Triglyceride 64 mg/dL (<150)
[2022-04-18 12:39] LABS: Hemoglobin A1C 5.7 % (<5.7)
== END 2022-04-18 02:54 | disposition home or self-care (01) ==
LOC: LOS 02:53
PROVIDERS: PCP Nurse Practitioner Family; Visit Provider Nurse Practitioner Family
DX: Z13.1 Encounter for screening for diabetes mellitus (principal); E78.5 Hyperlipidemia, unspecified
CPT/HCPCS: 36415; 80061; 83036

== ENCOUNTER 2022-05-20 15:24 | Outpatient (CLI) | payer OTHER, SELFPAY ==
--- NOTE | 2022-05-20 15:15 | DI.RAD_ITS ---
Exam(s) XR KNEE LT 3V AP,LAT,JARED EXAM: XR KNEE LT 3V AP,LAT,JARED CLINICAL HISTORY: L knee pain. TECHNIQUE: 2D digital imaging was performed of the left knee. Three images were obtained. AP, late ral and PA tunnel views were obtained. COMPARISON: CR XR KNEE LT 4V AP,LAT,JARED,PAT from 02/28/2020 FINDINGS: BONES: No acute fracture is present. No bony destructive lesion is seen. JOINTS: The knee is normally aligned. No joint effusion is seen. SOFT TISSUE: The tiny linear density in the soft tissues anterior to the patellar ligament is unchang ed. IMPRESSION: No acute abnormality. DATA REPOSITORY: RADIATION DOSE DELIVERED:
== END 2022-05-20 15:25 | disposition home or self-care (01) ==
LOC: DIORS 15:25
PROVIDERS: PCP Nurse Practitioner Family; Referring Provider Nurse Practitioner Family; Visit Provider Physician Assistant
DX: M25.562 Pain in left knee (principal)
CPT/HCPCS: 73562

== ENCOUNTER 2022-07-31 16:15 | Outpatient (CLI) | payer BC, SELFPAY ==
--- NOTE | 2022-07-31 16:15 | RT.EKG_ITS ---
APPROVED REPORT Exam: Resting ECG Reason for Exam: bradycardia Patient Location: O HR:52 bpm ECG Measurements Heart Rate 52 AXIS KS 136 P 53 QRSd 96 QRS 50 QT 407 T 60 QTc 379 Conclusion Sinus rhythm...normal P axis, V-rate 50- 99 RSR' in V1 or V2, probably normal variant...small R' only Left ventricular hypertrophy...multiple voltage criteria ST elev, probable normal early repol pattern...ST elevation, age<55
== END 2022-07-31 16:16 | disposition home or self-care (01) ==
LOC: DI.CM 16:17
PROVIDERS: PCP Nurse Practitioner Family; Visit Provider Nurse Practitioner Family
DX: R00.1 Bradycardia, unspecified (principal); I42.2 Other hypertrophic cardiomyopathy
CPT/HCPCS: 93010

== ENCOUNTER 2022-08-06 03:06 | Outpatient (CLI) | payer BC, SELFPAY ==
[2022-08-06 15:52] LABS: ALT 31 U/L (16-63); AST 29 U/L (15-37); Albumin 3.9 g/dL (3.4-5.0); Alkaline Phosphatase 70 U/L (46-116); Anion Gap 6.2 mmol/L (3-11); BUN 20 mg/dL (7-18); Bilirubin, Total 0.3 mg/dL (0.2-1.0); CO2 29.8 mmol/L (21.0-32.0); CREATININE 1.1 mg/dL (0.70-1.30); Calcium 9.1 mg/dL (8.5-10.1); Chloride 105 mmol/L (98-107); Estimated GFR 80.27 (mL/min/1.73m2); Glucose 100 mg/dL (74-106); Potassium 4.2 mmol/L (3.5-5.1); Sodium 141 mmol/L (136-145); Total Protein 6.9 g/dL (6.4-8.2)
[2022-08-08 10:27] LABS: Lyme Ab w Rflx to Lyme Confirm Negative (Negative)
[2022-08-09 15:46] LABS: Anaplasma phagocytophilum Negative (Negative); B. miyamotoi PCR Negative (Negative); Babesia divergens/MO-1 Negative (Negative); Babesia duncani Negative (Negative); Babesia microti Negative (Negative); Ehrlichia chaffeensis Negative (Negative); Ehrlichia ewingii/canis Negative (Negative); Ehrlichia muris eauclairensis Negative (Negative)
== END 2022-08-06 03:07 | disposition home or self-care (01) ==
PROVIDERS: PCP Nurse Practitioner Family; Visit Provider Nurse Practitioner Family
DX: R00.1 Bradycardia, unspecified (principal)
CPT/HCPCS: 36415; 80053; 87798; 93270; 86618

== ENCOUNTER 2022-08-22 13:56 | Outpatient (CLI) | payer BC, SELFPAY ==
--- NOTE | 2022-08-22 13:45 | HOLTER_ITS ---
APPROVED REPORT Conclusion This is a 48-hour Holter monitor ordered for bradycardia Predominant rhythm was sinus with an average heart rate of 62. Minimum was 46, maximum 106 There were no significant atrial or ventricular dysrhythmias, no atrial fibrillation, no high-grade A V block, no pauses greater than 3 seconds Patient symptoms were reported which did not correlate with any dysrhythmia
== END 2022-08-22 13:57 | disposition home or self-care (01) ==
PROVIDERS: PCP Nurse Practitioner Family; Visit Provider Nurse Practitioner Family
DX: R00.1 Bradycardia, unspecified (principal)
CPT/HCPCS: 93225; 93226

== ENCOUNTER 2023-04-25 02:22 | Outpatient (CLI) | payer BC, SELFPAY ==
[2023-04-25 10:08] LABS: TSH (W/Ref FT4) 1.81 uIU/mL (0.36-3.74); Vitamin B12 454 pg/mL (193-986)
== END 2023-04-25 02:23 | disposition home or self-care (01) ==
LOC: LBO 02:25
PROVIDERS: PCP Nurse Practitioner Family; Visit Provider Nurse Practitioner Family
DX: R41.3 Other amnesia (principal)
CPT/HCPCS: 36415; 82607; 84443

== ENCOUNTER 2024-05-24 10:53 | Outpatient (CLI) | payer BC, SELFPAY ==
[2024-05-24 09:21] LABS: Calculated LDL 155 mg/dL (<100); Cholesterol 231 mg/dL (<200); HDL Cholesterol 61 mg/dL (40-60); Triglyceride 75 mg/dL (<150)
[2024-05-24 09:52] LABS: Hemoglobin A1C 5.7 % (<5.7)
[2024-05-24 18:20] LABS: PSA, Screening 0.9 ng/mL (<=3.5)
== END 2024-05-24 10:54 | disposition home or self-care (01) ==
LOC: LBO 11:01
PROVIDERS: PCP Nurse Practitioner Family; Visit Provider Nurse Practitioner Family
DX: Z12.5 Encounter for screening for malignant neoplasm of prostate (principal); Z13.220 Encounter for screening for lipoid disorders; Z13.1 Encounter for screening for diabetes mellitus
CPT/HCPCS: 36415; 80061; 84153; 83036

== ENCOUNTER 2024-05-27 01:47 | Outpatient (CLI) | payer BC, SELFPAY ==
--- NOTE | 2024-05-27 06:04 | ETT_ITS ---
APPROVED REPORT Exam: Exercise Treadmill Patient Location: Out-Patient Room/Bed: Stress Nurse: Margo Quevedo RN Ordering Provider:PIPO SHARPE, Contact Number: [phone] BMI: 22.50 Baseline Rhythm: Sinus Bradycardia Comment: PAC Indications: chest pain Medical History Medical History: COVID 19, AVM, hydronephrosis, short term memory loss, HCD, chewing tobacco nicotine dependence, insomnia, migraines, peripheral neuropathy, RLS Cardiac Medications: celecoxib, metaxalone, zomig, ambien Allergies: sertraline Cardiac Risk Factors: family hx, HLD, smoker Previous Cardiac Procedures: none Pretest Chest Pain Characteristics: No chest pain Exercise History: Physically active Physical Disabilities: none Lung Sounds: Clear to auscultation Heart Sounds: Bradycardia Stress Test Details Test: Exercise stress testing was performed using a Gavin protocol. Rest Stress HR Resting HR Supine: 48 bpm Max Heart Rate (APMHR): 165 bpm Resting HR Standin bpm Target HR (85% APMHR): 140 bpm Max HR Achieved: 148 bpm % of APMHR: 90 Recovery HR: 74 bpm HR response to stress: Normal HR response to stress BP Resting BP Supine: 114/72 mmHg Resting BP Standin/62 mmHg Max BP: 124/64 mmHg Recovery BP: 100/70 mmHg BP response to stress: Normal blood pressure response to stress. ECG Resting ECG: Sinus Bradycardia Ectopy: rare PAC Stress ECG: Sinus Tachycardia ST Change: No significant ST segment changes noted Arrhythmia: None Recovery ECG: Sinus Rhythm Recovery ST Change: No significant ST segment changes noted Recovery Arrhythmia: None Clinical Reason for Termination: Target HR Achieved Stress Symptoms: none Exercise duration: 10 min29 sec Highest Stage Reached: Stage 4: 4.2 mph at 16% grade. Exercise capacity: 12.59 METs Angina Score: None Del Cid Treadmill Score: 9.0 Rate Pressure Product: [id number] Stress ECG Conclusion 1. Resting electrocardiogram was normal 2. Patient exercised on the Gavin protocol and completed a workload of 12.59 METS, above average exer cise capacity for age 3. Normal heart rate and blood pressure response to exercise. The patient achieved 90% of predicted heart rate for age 4. There was no electrocardiographic evidence of myocardial ischemia 5. There were no dysrhythmias Del Cid Treadmill Score is 9.0 which is Low risk. Stress Test Summary STAGE Time (mins) Speed (mph) Grade (%) HR BP SpO2 SYMPTOMS METS Supine 48 114/72 97 Standing 53 92/62 1 3 1.7 10 77 100/52 96 4.5 2 6 2.5 12 91 114/54 7 3 9 3.4 14 146 10 1 min recovery 120 110/50 97 3 min recovery 71 124/64 98 6 min recovery 74 100/70 98
== END 2024-05-27 02:07 ==
LOC: DI 01:47
PROVIDERS: PCP Nurse Practitioner Family; Visit Provider Internal Medicine Cardiovascular Disease
DX: R07.9 Chest pain, unspecified (principal)
CPT/HCPCS: 93017

== ENCOUNTER 2024-08-27 16:17 | Emergency (ER) | payer BC, SELFPAY ==
[2024-08-27 16:25] VITALS: BP 117/79; PULSE 57; RESP 12; TEMP 36.6; O2SAT 97
--- NOTE | 2024-08-27 16:35 | W.ED.GENAD ---
Discharge Plan Disposition Patient Disposition: Home Condition: Stable Discharge Details Clinical Impression: Lumbar paraspinal muscle spasm Primary Care Provider: Boni Vidales ED Provider: Patrice Cook Home Meds and New Rx's Prescriptions: New ketorolac 10 mg tablet 10 mg PO QID 5 Days Qty: 19 0RF Rx Instructions: maximum total duration of 5 days from all oral, intranasal, or parenteral formulations baclofen 10 mg tablet 10 mg PO TID PRN7 Days Qty: 21 0RF Continued nystatin-triamcinolone 15 GM cream 1 dorinda Topical BID PRNQty: 3 zolpidem 10 mg tablet 10 mg PO HS PRN (Reason: insomnia) Qty: 30 2RF metaxalone 800 mg tablet 800 mg PO TID PRN (Reason: muscle pain) Qty: 90 3RF acetaminophen 500 mg tablet 1,000 mg PO TID Qty: 90 0RF Held celecoxib [Celebrex] 200 mg capsule 200 mg PO BIDWMEAL Qty: 90 4RF Rx Instructions: TAKE WITH FOOD. Discharge Instructions Instructions: Ketorolac (Systemic), Baclofen, Muscle Spasm ED Additional Instructions: You were seen in the emergency department for your right paraspinal lumbar muscle spasm, there is no kidney stone seen on CT scan, no major abnormality of the lumbar spine save for some disc bulge at L5-S1 which could be radiating up your lumbar muscles. Please take 1000 mg of Tylenol 4 times per day, alf in between Tylenol dosings please take the prescribed ketorolac also 4 times per day, use the prescribed baclofen 3 times per day as needed for muscle relaxation, do not operate machinery while on this medication until you know how you react to it it is still not advised to drive on baclofen. You can alternate heat and ice to the area as well. Please follow-up with physical therapy for referral, please have your primary care doctor refer you to urology for outpatient cystoscopy if you have persistent microscopic hematuria on further UA testing. Stand Alone Forms: Physical Therapy Referral Referrals: Boni Vidales, [employer] TRA[employer] [Primary Care Provider] - Discharge Data Discharge Date/Time-TO BE ENTERED AT DEPARTURE: 08/27/24 19:02 HPI General Date/Time Provider Initiated Documentation: 08/27/24 16:23. HPI Narrative: 54 year-old male presents to ED today by POV/ambulating with a chief complaint of three weeks of L flank pain, some microscopic urine at PCP office, with history of renal stones with onset for the past 3 weeks, and a brief episode of R flank pain today for 1-5 mins. Quality described as like a tennis ball in his L flank/back, no radiation to urinary retention, fever, gross hematuria, nausea/vomiting, abdominal pain, chest pain, shortness of breath. Severity is described as moderate. Palliating factors include nothing specific attempted. Provoking factors include nothing specific. Patient not anticoagulated. Related Data Home Medications ?Medication ?Instructions ?Recorded ?Confirmed nystatin-triamcinolone 100,000 1 dorinda topical BID PRN #3 ea 01/30/17 08/27/24 unit/g-0.1 % topical cream acetaminophen 500 mg tablet 1,000 mg (2 x 500 mg) PO TID #90 09/11/21 08/27/24 tabs celecoxib 200 mg capsule (Celebrex) 200 mg PO BIDWMEAL #90 tab-caps 02/27/24 08/27/24 zolpidem 10 mg tablet 10 mg PO HS PRN insomnia #30 06/07/24 08/27/24 tab-caps metaxalone 800 mg tablet 800 mg PO TID PRN muscle pain #90 06/23/24 08/27/24 tabs baclofen 10 mg tablet 10 mg PO TID PRN 7 days #21 tabs 08/27/24 ketorolac 10 mg tablet 10 mg PO QID 5 days #19 tabs 08/27/24 Previous Rx's ?Medication ?Instructions ?Recorded acetaminophen 500 mg tablet 1,000 mg (2 x 500 mg) PO TID #90 09/11/21 tabs celecoxib 200 mg capsule (Celebrex) 200 mg PO BIDWMEAL #90 tab-caps 02/27/24 zolpidem 10 mg tablet 10 mg PO HS PRN insomnia #30 06/07/24 tab-caps metaxalone 800 mg tablet 800 mg PO TID PRN muscle pain #90 06/23/24 tabs baclofen 10 mg tablet 10 mg PO TID PRN 7 days #21 tabs 08/27/24 ketorolac 10 mg tablet 10 mg PO QID 5 days #19 tabs 08/27/24 Allergies Allergy/AdvReac Type Severity Reaction Status Date / Time sertraline AdvReac Intermediate Diarrhea Verified 08/27/24 16:30 General Stated Complaint: FlankPain RORY: 3 Review of Systems All systems reviewed & are unremarkable except as noted in HPI and below Exam Narrative Exam Narrative: GENERAL APPEARANCE: Well-nourished, non-toxic, awake and alert, atraumatic, no acute distress. SKIN: Warm, pink, dry, intact, without rashes/lesions/ulcerations. HEAD: Normocephalic, atraumatic, normal hair distribution for gender/age. EYES: Normal conjunctiva, no exudates on lids/lashes. ENT: Nares patent, no circumoral cyanosis, no facial swelling NECK: Supple, trachea midline, painless cervical ROM. LUNGS/CHEST: Lungs CTA bilaterally- no rhonchi/rales/wheezes diffusely, non-labored respirations, normal A/P diameter, symmetrical expansion, no chest wall deformity HEART (CV/PV): Regular rate and rhythm without murmur, no peripheral edema, no JVD. ABDOMEN: Soft, non-distended, no guarding, L CVA tenderness to percussion. MSK: Normal ROM, no swelling/deformity to bilateral UEs or LEs, moving all extremities without weakness, no cyanosis, spine midline without tenderness, normal curvature. NEURO: Mental Status AAOx4 - alert to person, place, time, events No facial droop, no forehead involvement. Motor: No focal weakness - strength 5/5 in bilateral UEs and LEs, proximal and distal, symmetric. Sensory: sensation intact to light touch globally. Gait normal: patient ambulated without ataxia into ED room. PSYCH: euthymic, cooperative, pleasant, appropriate speech Course Vital Signs Vital signs: Vital Signs Temperature 36.6 C 08/27/24 16: Pulse 57 L 08/27/24 16: Respiratory Rate 12 08/27/24 16: Blood Pressure 117/79 08/27/24 16: Pulse Oximetry 97 08/27/24 16: Temperature 36.6 C 08/27/24 16:25 Temperature Source Oral 08/27/24 16: Pulse 57 L 08/27/24 16:25 Respiratory Rate 12 08/27/24 16: Blood Pressure 117/79 08/27/24 16:25 Blood Pressure Position Sitting 08/27/24 16:25 Pulse Oximetry 97 08/27/24 16:25 Oxygen Delivery Method Room Air 08/27/24 16:25 Oxygen Flow Rate 0 08/27/24 16:25 Pain Level 0 08/27/24 16:25 Medical Decision Making This dictation utilizes [id number] dictation software and may contain unedited grammatical errors. 54 year-old male presents to ED today by POV/ambulating with a chief complaint of three weeks of L flank pain, some microscopic urine at PCP office, with history of renal stones with onset for the past 3 weeks, and a brief episode of R flank pain today for 1-5 mins. Quality described as like a tennis ball in his L flank/back, no radiation to urinary retention, fever, gross hematuria, nausea/vomiting, abdominal pain, chest pain, shortness of breath. Severity is described as moderate. Palliating factors include nothing specific attempted. Provoking factors include nothing specific. Patients' medical history: Renal stones, peripheral neuralgia. Family and social history: Noncontributory. Pertinent exam findings / vital signs include left CVA tenderness to percussion, no anterior abdominal tenderness, benign cardiopulmonary exam, neuro intact, nontoxic and afebrile. Differential / pathologies of concern include lumbar muscle spasm, renal colic, unlikely trauma. Diagnostic studies of: - CBC, CMP, lipase, CT renal colic study, UA already given at primary care. - CBC shows no leukocytosis or other abnormality - CMP shows no actionable abnormality - Lipase negative - CT renal study shows no hydronephrosis or ureterolithiasis, no other pathology seen Interventions of: - Tylenol, Toradol IM, Lidoderm patch, p.o. Ativan for trial of relief of lumbar muscle spasm. ED Course/Assessment/Plan: 54-year-old male presents with left flank pain with some microscopic hematuria seen on UA at primary care, CT is negative for any renal stones, he likely has lumbar muscle spasm, no evidence for infection or BLAINE, lipase negative do not suspect biliary colic, counseled the patient on trial of relief for lumbar muscle spasm treatment and repeat UA's with primary care to make sure his microscopic hematuria clears up otherwise he could get a referral to outpatient urology for cystoscopy. Findings not consistent with cauda equina, renal colic, infected kidney stone, UTI, infectious etiology, biliary colic, trauma. Disposition of Lumbar Paraspinal Muscle Spasm. Patient verbalized understanding of the plan and return to ED criteria and engaged in shared decision making. Medical Records Medical records reviewed: Yes I reviewed the patient's medical records. Imaging Data Radiologic Study: Attestation: I personally reviewed and interpreted this imaging study as follows: Imaging: CT Scan Radiologist's impression: EXAM: CT RENAL COLIC WO and CT lumbar spine recons CLINICAL HISTORY: R flank pain. TECHNIQUE: Imaging Protocol: Axial computed tomography images with coronal and sagittal reformatted images were created and reviewed. COMPARISON: CT ABD PELVIS WITH CONTRAST from 03/05/[address] LUMBAR SPINE RECONS from 08/27/2024 FINDINGS: ABDOMEN: Lung Bases: Normal where visualized. Liver: Normal density. No measurable mass. Gallbladder and biliary tract: No radiodense calculus or biliary ductal dilation. Pancreas: Normal density, no abnormal calcifications or inflammatory process. Spleen: Normal. Kidneys: Normal size, contour and axis.No evidence of hydronephrosis or ureterolithiasis. No masses seen. Adrenal glands: No mass is seen. Lymph nodes: Within normal limits. Abdominal Aorta: Abdominal portion non-dilated. Minimal atherosclerotic calcification. PELVIS: Bladder:Symmetric distention, no gross wall thickening. No bladder stones are identified. Bowel: There is diverticulosis of the colon without evidence of acute diverticulitis. There is no evidence of bowel obstruction or bowel wall thickening. There is no evidence of an acute appendicitis. There is some high density material seen within the appendix which may represent an appendicoliths. No periappendiceal inflammation is seen. Peritoneal cavity: No ascites, collection or mesenteric inflammatory response. No free air. Reproductive organs: The prostate gland is enlarged. Bones: Within normal limits. Soft Tissues: Within normal limits. CT lumbar spine reconstructions: Minimal degenerative changes are seen in the lumbar spine. No acute fracture or subluxation is present. Small diffuse disc bulges are seen at L4-5 and L5-S1. No large disc herniation is seen. No significant central spinal canal or neural foraminal stenosis is seen. IMPRESSION: 1. No evidence of hydronephrosis or ureterolithiasis. 2. No evidence of an acute appendicitis. 3. No significant central spinal canal or neural foraminal stenosis is seen in the lumbar spine. 4. Colonic diverticulosis without evidence of acute diverticulitis. Lab Data Lab results reviewed: Yes I reviewed the patient's lab results. Labs: Laboratory Tests Range/Units 08/27/ 17:12 WBC (4.4-10.8) 10^3/uL 7.36 RBC (4.36-5.78) 10^6/uL 4.70 Hgb (13.5-17.5) g/dL 14.6 Hct (40.0-50.0) % 43.2 MCV (80-95) fL 92 MCH (27.0-33.0) pg 31.1 MCHC (32.0-36.0) % 33.8 RDW (11.8-14.1) % 12.1 Plt Count (130-400) 10^3/uL 251 MPV (8.0-11.0) fL 9.0 Immature Gran % % 0.3 Neutrophils % % 56.1 Lymphocytes % % 32.5 Monocytes % % 8.7 Eosinophils % % 1.6 Basophils % % 0.8 Nucleated RBC % (0.0-0.3) % 0.0 Absolute Neutrophils (1.2-6.7) 10^3/uL 4.13 Absolute Lymphocytes (1.2-3.4) 10^3/uL 2.39 Absolute Monocytes (0.1-0.8) 10^3/uL 0.64 Absolute Eosinophils (0.0-0.7) 10^3/uL 0.12 Absolute Basophils (0.0-0.2) 10^3/uL 0.06 Sodium (136-145) mmol/L 141 Potassium (3.5-5.1) mmol/L 4.5 Chloride (98-107) mmol/L 105 Carbon Dioxide (21.0-32.0) mmol/L 30.4 Anion Gap (3-11) mmol/L 5.6 BUN (7-18) mg/dL 20 H Creatinine (0.70-1.30) mg/dL 1.1 Est GFR (CKD-EPI 2020) (mL/min/1.73m2) 79.28 Glucose (74-106) mg/dL 90 Calcium (8.5-10.1) mg/dL 9.5 Total Bilirubin (0.2-1.0) mg/dL 0.5 AST (15-37) U/L 26 ALT (16-63) U/L 28 Alkaline Phosphatase (46-116) U/L 75 Total Protein (6.4-8.2) g/dL 7.2 Albumin (3.4-5.0) g/dL 4.2 Lipase (<78) U/L 43 Quality:SDOH Health Related Social Needs: No Data to Display PFSH All Active Problems (Updated 08/27/24 @ 18:54 by ANGEL Rebolledo) Lumbar paraspinal muscle spasm (Acute) Short-term memory loss (Acute) Slow heart rate (Acute) Diarrhea (Acute) Chewing tobacco nicotine dependence (Acute) 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) Acquired deviated nasal septum (Chronic 07/26/13) Gastric motor function disorder (Chronic) History of tobacco use (Chronic) Quit in 2001 Hyperlipidemia (Chronic) Insomnia (Chronic) Low back pain (Chronic) Lymphadenopathy (Acute) left posterior cervical node Migraine (Chronic 12/14/09) Hardly ever Peripheral neuralgia (Chronic) Restless leg syndrome, uncontrolled (Chronic 03/17/15) Medical History COVID-19 08/2020 Lab test positive for detection of COVID-19 virus (~08/2020) Sprain of medial collateral ligament of left knee 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 Father Stroke Heart disease Sister No problems noted. Brother Diabetes Maternal Grandfather Heart disease Hyperlipidemia Paternal Grandfather , AGE 51 Heart disease Maternal Grandmother Lung cancer Paternal Grandmother Hyperlipidemia Breast cancer Brother No problems noted. Brother No problems noted. Son No problems noted. Daughter No problems noted. Social History Smoking/Tobacco Use Status: Former Tobacco Use tobacco type: smokeless tobacco Quit Date: 11/03/23 Tobacco: How many years used: 20 Smokeless tobacco user: chewing tobacco Quit status: has quit before Second Hand Exposure: Yes Smoking risk assessment performed?: Yes Alcohol Intake: current Alcohol Intake frequency: a few times a month Alcohol type: beer and hard liquor Drug use: Never Substance use type: does not use Adopted: No Caregiver/Support person: No Household members: spouse and children Housing: house Number of Children: 2 number of grandchildren: 0 Communication Needs: None Education Level: high school Do you need help understanding health information?: Rarely 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 Pets and animals: Yes Pets and animals: dog(s) Sexually active: Yes Do you think of yourself as: straight/heterosexual Current gender identity: male What is your relationship status?: How often do you talk on the phone with friends or family?: twice per week How often do you get together with friends or relatives?: once per week How often do you attend episcopalian or alevism services?: decline to answer Do you belong to any clubs or organized social groups?: no Panel score (0-1 are the most socially isolated patients): 2 What type of physical activity do you participate in: other Details: constant movement with my job Duration: 60-90 minutes/day Frequency: daily Nisreen/Druze: Oriental Orthodox Special nisreen needs: No Agree to transfusion: Yes Seatbelt use: always Helmet use: Yes Helmet use: always Drive intox or ride w/intox delivery driver/customer service: No Working smoke detector in home: Yes Fire extinguisher in home: Yes Carbon monox detector in home: Yes Firearms in home: Yes Firearms unloaded and locked: No (not locked, not loaded) Do you feel safe at home: Yes Do you feel safe in your relationship?: Yes Victim of physical abuse: No Victim of emotional abuse: No Victim of sexual abuse: No
--- NOTE | 2024-08-27 16:45 | DI.CT_ITS ---
Exam(s) CT LUMBAR SPINE RECONS CT RENAL COLIC WO EXAM: CT RENAL COLIC WO and CT lumbar spine recons CLINICAL HISTORY: R flank pain. TECHNIQUE: Imaging Protocol: Axial computed tomography images with coronal and sagittal reformatted images were created and reviewed. COMPARISON: CT ABD PELVIS WITH CONTRAST from 03/05/[address] LUMBAR SPINE RECONS from 08/27/2024 FINDINGS: ABDOMEN: Lung Bases: Normal where visualized. Liver: Normal density. No measurable mass. Gallbladder and biliary tract: No radiodense calculus or biliary ductal dilation. Pancreas: Normal density, no abnormal calcifications or inflammatory process. Spleen: Normal. Kidneys: Normal size, contour and axis.No evidence of hydronephrosis or ureterolithiasis. No masses seen. Adrenal glands: No mass is seen. Lymph nodes: Within normal limits. Abdominal Aorta: Abdominal portion non-dilated. Minimal atherosclerotic calcification. PELVIS: Bladder:Symmetric distention, no gross wall thickening. No bladder stones are identified. Bowel: There is diverticulosis of the colon without evidence of acute diverticulitis. There is no ev idence of bowel obstruction or bowel wall thickening. There is no evidence of an acute appendicitis. There is some high density material seen within the appendix which may represent an appendicoliths. No periappendiceal inflammation is seen. Peritoneal cavity: No ascites, collection or mesenteric inflammatory response. No free air. Reproductive organs: The prostate gland is enlarged. Bones: Within normal limits. Soft Tissues: Within normal limits. CT lumbar spine reconstructions: Minimal degenerative changes are seen in the lumbar spine. No acute fracture or subluxation is present. Small diffuse disc bulges are seen at L4-5 and L5-S1. No large disc herniation is seen. No significant central spinal canal or neural foraminal stenosis is seen. IMPRESSION: 1. No evidence of hydronephrosis or ureterolithiasis. 2. No evidence of an acute appendicitis. 3. No significant central spinal canal or neural foraminal stenosis is seen in the lumbar spine. 4. Colonic diverticulosis without evidence of acute diverticulitis. RADIATION DOSE DELIVERED: 412.41 mGy.cm Total DLP DATA REPOSITORY: All CT scans at this facility are submitted to the National Radiology Data Registry (NRDR) Dose Index Registry (DIR) with the [employer] ([employer]). RADIATION OPTIMIZATION: All CT scans at this facility use at least one of these dose optimization te chniques: automated exposure control; mA and/or kV adjustment per patient size (includes targeted exa ms where dose is matched to clinical indication); or iterative reconstruction.
[2024-08-27] MEDS: Lidocaine 5% Patch 1 PATCH TP (17:15)
[2024-08-27] MEDS: LORazepam 0.5 MG TAB PO (17:15)
[2024-08-27] MEDS: Ketorolac 30 MG/ML VIAL IM (17:15)
[2024-08-27] MEDS: Acetaminophen 500 MG TAB 1000 MG PO (17:15)
[2024-08-27 17:17] LABS: Abs Immature Grans 0.02 10^3/uL (0.0-0.06); Absolute Basophil Count 0.06 10^3/uL (0.0-0.2); Absolute Eosinophil Count 0.12 10^3/uL (0.0-0.7); Absolute Lymphocyte Count 2.39 10^3/uL (1.2-3.4); Absolute Monocyte Count 0.64 10^3/uL (0.1-0.8); Absolute Neutrophil Count 4.13 10^3/uL (1.2-6.7); Basophils % 0.8 %; Eosinophils % 1.6 %; HCT 43.2 % (40.0-50.0); HGB 14.6 g/dL (13.5-17.5); Immature Grans % 0.3 %; Lymphocytes % 32.5 %; MCH 31.1 pg (27.0-33.0); MCHC 33.8 % (32.0-36.0); MCV 92 fL (80-95); Monocytes % 8.7 %; Neutrophils % 56.1 %; Platelet Count 251 10^3/uL (130-400); RDW 12.1 % (11.8-14.1); RDW-SD 41.1 fL; WBC 7.36 10^3/uL (4.4-10.8)
[2024-08-27 17:35] LABS: ALT 28 U/L (16-63); AST 26 U/L (15-37); Albumin 4.2 g/dL (3.4-5.0); Alkaline Phosphatase 75 U/L (46-116); Anion Gap 5.6 mmol/L (3-11); BUN 20 mg/dL (7-18); Bilirubin, Total 0.5 mg/dL (0.2-1.0); CO2 30.4 mmol/L (21.0-32.0); CREATININE 1.1 mg/dL (0.70-1.30); Calcium 9.5 mg/dL (8.5-10.1); Chloride 105 mmol/L (98-107); Estimated GFR 79.28 (mL/min/1.73m2); Glucose 90 mg/dL (74-106); Lipase 43 U/L (<78); Potassium 4.5 mmol/L (3.5-5.1); Sodium 141 mmol/L (136-145); Total Protein 7.2 g/dL (6.4-8.2)
[2024-08-27 19:02] VITALS: BP 117/79; PULSE 57; RESP 12; TEMP 36.6; O2SAT 97
[2024-08-27 19:14] LABS: Bilirubin Negative (Negative); Blood Negative (Negative); Clarity Clear (Clear); Glucose Negative (Negative); Ketones Negative (Negative); Leukocyte Esterase Negative (Negative); Nitrite Negative (Negative); Specific Gravity >= 1.030 (1.005-1.025); Urobilinogen 0.2 mg/dL (Up to 0.2); pH 5.5 (5-8)
== END 2024-08-27 19:02 | disposition home or self-care (01) ==
PROVIDERS: Emergency Provider Physician Assistant; PCP Nurse Practitioner Family
DX: M62.830 Muscle spasm of back (principal)
CPT/HCPCS: 99284 ×2; 96372; 36415; 80053; 83690; 74176; 81003; 85025; J1885

== ENCOUNTER 2024-11-24 18:04 | Observation (INO) | payer BC, SELFPAY ==
[2024-11-24] VITALS (34 sets, daily range): BP systolic 86–152; BP diastolic 50–128; PULSE 52–87; RESP 13–20; TEMP 36.5–36.9; O2SAT 94–100; BMI 22.8
--- NOTE | 2024-11-24 18:30 | DI.CT_ITS ---
Exam(s) CT ABDOMEN PELVIS W EXAM: CT ABDOMEN PELVIS W CLINICAL HISTORY: ABD PAIN. TECHNIQUE: Imaging Protocol: Axial computed tomography images with coronal and sagittal reformatted images were created and reviewed CONTRAST MATERIAL: Intravenous: Omnipaque 350 Contrast volume:75 ml Oral: no COMPARISON: CT CT RENAL COLIC WO from 08/27/2024 FINDINGS: ABDOMEN and PELVIS: Lung Bases: No acute findings. Liver: Normal density. No suspicious mass. Gallbladder and biliary tract: No radiodense calculus. No wall thickening or pericholecystic fluid. No biliary dilation. Pancreas: Normal density. No abnormal calcifications or inflammatory process. No evidence of mass. Spleen: Normal. Kidneys: Normal size, contour and axis. No radiodense stones. No obstructive uropathy. No suspicious masses seen. Adrenal glands: No masses seen. Vasculature: Abdominal aorta non-dilated. Soft tissues: Unremarkable. Bladder: No gross wall thickening. No calculi.No focal mass. Bowel: No obstruction. The appendix is dilated in the mid to distal portion which is not present previously. No evidence of perforation or abscess. There is mild adjacent wall thickening of the terminal ileum. Mild diverticulosis. No evidence of diverticulitis. Peritoneal cavity: No ascites. No focal collection. No mesenteric inflammatory response. No free air. Bones: Unremarkable for age. Reproductive organs: Borderline enlarged prostate. Lymph nodes: No pathologically enlarged lymph nodes. IMPRESSION:: Findings consistent with acute appendicitis. No perforation or abscess. The preliminary [facility] report was reviewed. RADIATION DOSE DELIVERED: 324.19mGy.cm Total DLP DATA REPOSITORY: All CT scans at this facility are submitted to the National Radiology Data Registry (NRDR) Dose Index Registry (DIR) with the [employer] (ACR). RADIATION OPTIMIZATION: All CT scans at this facility use at least one of these dose optimization techniques: automated exposure control; mA and/or kV adjustment per patient size (includes targeted exams where dose is matched to clinical indication); or iterative reconstruction.
[2024-11-24] MEDS: Normal Saline 1,000 ML 1000 ML IV (18:47)
[2024-11-24] MEDS: Ondansetron 4 MG/2 ML VIAL IVP (18:48)
[2024-11-24] MEDS: Ketorolac 15 MG/ML VIAL 10 MG IVP (18:48)
[2024-11-24 18:59] LABS: Abs Immature Grans 0.10 10^3/uL (0.0-0.06); HCT 42.7 % (40.0-50.0); HGB 14.4 g/dL (13.5-17.5); Immature Grans % 0.6 %; MCH 30.4 pg (27.0-33.0); MCHC 33.7 % (32.0-36.0); MCV 90 fL (80-95); MPV 9.3 fL (8.0-11.0); Platelet Count 260 10^3/uL (130-400); RBC 4.73 10^6/uL (4.36-5.78); RDW 12.3 % (11.8-14.1); RDW-SD 40.8 fL; WBC 17.53 10^3/uL (4.4-10.8)
--- NOTE | 2024-11-24 19:11 | ED.GENADUL_ITS ---
Discharge Plan Disposition Patient Disposition: Admit to [facility] Discharge Details Clinical Impression: Acute appendicitis, Abdominal pain Primary Care Provider: Boni Vidales ED Provider: Lio Torres Home Meds and New Rx's Prescriptions: No Action nystatin-triamcinolone 15 GM cream 1 dorinda Topical BID PRNQty: 3 celecoxib [Celebrex] 200 mg capsule 200 mg PO BIDWMEAL Qty: 90 4RF Rx Instructions: TAKE WITH FOOD. metaxalone 800 mg tablet 800 mg PO TID PRN (Reason: muscle pain) Qty: 90 3RF zolpidem 10 mg tablet 10 mg PO HS PRN (Reason: insomnia) Qty: 30 2RF tamsulosin [Flomax] 0.4 mg capsule 0.4 mg PO DAILY Qty: 90 3RF acetaminophen 500 mg tablet 1,000 mg PO TID Qty: 90 0RF HPI General Date/Time Provider Initiated Documentation: 11/24/24 18:37 . Limitations to Documentation: no limitations . Information obtained by: patient . HPI Narrative: 54-year-old gentleman without significant past medical history presents for evaluation of abdominal pain. He reports that the pain started around 2 AM. It is been intermittent since that time. He reports the pain is diffuse. He had an episode of diarrhea and also an episode of vomiting today. The pain has been pretty persistent. No clear exacerbating or relieving symptoms, no medication tried for relief. Related Data Home Medications ?Medication ?Instructions ?Recorded ?Confirmed nystatin-triamcinolone 100,000 1 dorinda topical BID PRN # 3 ea 01/30/17 11/24/24 unit/g-0.1 % topical cream acetaminophen 500 mg tablet 1,000 mg (2 x 500 mg) PO T ID #90 09/11/21 11/24/24 tabs celecoxib 200 mg capsule (Celebrex) 200 mg PO BIDWMEAL #90 tab-caps 02/27/24 11/24/24 metaxalone 800 mg tablet 800 mg PO TID PRN muscle marv n #90 06/23/24 11/24/24 tabs zolpidem 10 mg tablet 10 mg PO HS PRN insomnia #30 10/04/24 11/24/24 tab-caps tamsulosin 0.4 mg capsule (Flomax) 0.4 mg PO DAILY #90 caps 11/19/24 11/24/24 Previous Rx's ?Medication ?Instructions ?Recorded acetaminophen 500 mg tablet 1,000 mg (2 x 500 mg) PO T ID #90 09/11/21 tabs celecoxib 200 mg capsule (Celebrex) 200 mg PO BIDWMEAL #90 tab-caps 02/27/24 metaxalone 800 mg tablet 800 mg PO TID PRN muscle marv n #90 06/23/24 tabs zolpidem 10 mg tablet 10 mg PO HS PRN insomnia #30 10/04/24 tab-caps tamsulosin 0.4 mg capsule (Flomax) 0.4 mg PO DAILY #90 caps 11/19/24 Allergies Allergy/AdvReac Type Severity Reaction Status Date / Time sertraline AdvReac Intermediate Diarrhea Verified 11/24/24 18:17 General Stated Complaint: Abd Prob RORY: 3 Exam Narrative Exam Narrative: Review of Systems: All systems reviewed & are unremarkable except as noted in HPI and below Well-developed, no acute distress Afebrile NCAT PERRL, normal conjunctiva RRR without murmur, Unlabored respiratory effort, clear bilaterally Nondistended abdomen , soft but tenderness throughout, mild guarding no rebound no focal neurologic deficits Appropriate mood and affect Course Vital Signs Vital signs: Vital Signs Temperature 36.9 C 11/24/24 18:13 Pulse 68 11/24/24 18:13 Respiratory Rate 20 11/24/24 18:13 Blood Pressure 102/62 11/24/24 18:13 Pulse Oximetry 97 11/24/24 18:13 Temperature 36.9 C 11/24/24 18:16 Pulse 68 11/24/24 18:16 Respiratory Rate 20 11/24/24 18:16 Blood Pressure 102/62 11/24/24 18:16 Blood Pressure Position Sitting 11/24/24 18:16 Pulse Oximetry 97 11/24/24 18:16 Oxygen Delivery Method Room Air 11/24/24 18:16 Oxygen Flow Rate 0 11/24/24 18:16 Medical Decision Making Emergent evaluation of abdominal pain. Initial differential includes gastroenteritis, diverticulitis, less likely obstruction. Patient has no high risk factors of abdominal surgery previously. Has had vomiting and diarrhea today. Is afebrile and hemodynamically stable. But does have a tender abdominal exam. Will give pain medication, nausea medication, fluid resuscitati on check labs and CT imaging. Lab work reviewed, there is a significant leukocytosis of 17.5 with left shift, no electrolyte derangement. Urinalysis is not infected. The patient's CT imaging was discussed with [facility] rad radiology and there is concern for acute appendicitis. No signs of perforation or abscess. An IV dose of Zosyn has been ordered and general surgery has been consulted and will mange the patient operatively. 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) Acquired deviated nasal septum (Chronic 07/26/13) Gastric motor function disorder (Chronic) History of tobacco use (Chronic) Quit in 2001 Hyperlipidemia (Chronic) Insomnia (Chronic) Low back pain (Chronic) Lymphadenopathy (Acute) left posterior cervical node Migraine (Chronic 12/14/09) Hardly ever Peripheral neuralgia (Chronic) Restless leg syndrome, uncontrolled (Chronic 03/17/15) Medical History COVID-19 08/2020 Lab test positive for detection of COVID-19 virus (~08/2020) Sprain of medial collateral ligament of left knee 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 Father Stroke Heart disease Sister No problems noted. Brother Diabetes Maternal Grandfather Heart disease Hyperlipidemia Paternal Grandfather , AGE 51 Heart disease Maternal Grandmother Lung cancer Paternal Grandmother Hyperlipidemia Breast cancer Brother No problems noted. Brother No problems noted. Son No problems noted. Daughter No problems noted. Social History Smoking/Tobacco Use Status: Former Tobacco Use tobacco type: smokeless tobacco Quit Date: 11/03/23 Tobacco: How many years used: 20 Smokeless tobacco user: chewing tobacco Quit status: has quit before Second Hand Exposure: Yes Smoking risk assessment performed?: Yes Alcohol Intake: current Alcohol Intake frequency: a few times a month Alcohol type: beer and hard liquor Drug use: Never Substance use type: does not use Adopted: No Caregiver/Support person: No Household members: spouse and children Housing: house Number of Children: 2 number of grandchildren: 0 Communication Needs: None Education Level: high school Do you need help understanding health information?: Rarely 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 Pets and animals: Yes Pets and animals: dog(s) Sexually active: Yes Do you think of yourself as: straight/heterosexual Current gender identity: male What is your relationship status?: How often do you talk on the phone with friends or family?: twice per week How often do you get together with friends or relatives?: once per week How often do you attend holiness or gnosticism services?: decline to answer Do you belong to any clubs or organized social groups?: no Panel score (0-1 are the most socially isolated patients): 2 What type of physical activity do you participate in: other Details: constant movement with my job Duration: 60-90 minutes/day Frequency: daily Nisreen/Jainism: Holiness Special nisreen needs: No Agree to transfusion: Yes Seatbelt use: always Helmet use: Yes Helmet use: always Drive intox or ride w/intox construction driver: No Working smoke detector in home: Yes Fire extinguisher in home: Yes Carbon monox detector in home: Yes Firearms in home: Yes Firearms unloaded and locked: No (not locked, not loaded) Do you feel safe at home: Yes Do you feel safe in your relationship?: Yes Victim of physical abuse: No Victim of emotional abuse: No Victim of sexual abuse: No PAWSS Have you Been Recently Intoxicated or Drunk Within the Last 30 days?: No Have you Ever Experienced Previous Episodes of Alcohol Withdrawal?: No Have you ever Experienced Withdrawal Seizures?: No Have you ever Experienced Delirium Tremens(DT)s?: No Have you ever undergone Alcohol Rehabilitation Treatment (i.e, inpt ot outpatient treatment programs)?: No Have you ever Experienced Blackouts?: No Have you ever Combined Alcohol with other Downers within the last 90 days?: No Have you ever Combined Alcohol with any other Substance of Abuse during the last 90 days?: No Positive Blood Alcohol level on Presentation? [PCS.BAL]: No Evidence of Increased Autonomic Activity (i.e. HR>120, tremor, sweating, agitation, nausea)?: No Result: 0
[2024-11-24 19:14] LABS: ALT 22 U/L (16-63); AST 19 U/L (15-37); Albumin 4.2 g/dL (3.4-5.0); Alkaline Phosphatase 72 U/L (46-116); Anion Gap 10.2 mmol/L (3-11); BUN 16 mg/dL (7-18); Bilirubin, Total 1.4 mg/dL (0.2-1.0); CO2 27.8 mmol/L (21.0-32.0); Calcium 9.8 mg/dL (8.5-10.1); Chloride 102 mmol/L (98-107); Estimated GFR 71.42 (mL/min/1.73m2); Glucose 116 mg/dL (74-106); Potassium 4.1 mmol/L (3.5-5.1); Sodium 140 mmol/L (136-145); Total Protein 7.4 g/dL (6.4-8.2)
[2024-11-24 19:23] LABS: Lipase 24 U/L (<78)
[2024-11-24] MEDS: Omnipaque 350 MG/ML 100 ML BTL 75 ML IJ (19:26)
[2024-11-24] MEDS: Normal Saline - Diluent 50 ML VIAL IJ (19:27)
[2024-11-24 19:44] LABS: Glucose Negative (Negative)
--- NOTE | 2024-11-24 19:49 | DI.VRAD_ITS ---
Addendum created by Yris Caban MD on 11/24/2024 7:50:12 PM EDT: This report contains findings that may be critical to patient care. The pertinent findings were communicated via telephone with MYRANDA SHARMA at 19:50 EDT on 11/24/2024. The findings were acknowledged and understood. Initial report created on 11/24/2024 7:48:41 PM EDT: PROCEDURE INFORMATION: Exam: CT Abdomen And Pelvis With Contrast Exam date and time: 11/24/2024 19:20 Age: 54 years old Clinical indication: Abdominal pain TECHNIQUE: Imaging protocol: Computed tomography of the abdomen and pelvis with contrast. Contrast material: OMNIPAQUE 350; Contrast volume: 75 ml; Contrast route: INTRAVENOUS (IV); COMPARISON: CT RENAL COLIC WO 08/27/2024 17:33 FINDINGS: Liver: No mass. Gallbladder and biliary ducts: No calcified stones. No gross ductal dilation. Pancreas: No ductal dilation. No mass . Spleen: No splenomegaly or suspicious lesions. Adrenal glands: No suspicious mass. Kidneys and ureters: No hydronephrosis. No masses. Stomach and bowel: Colonic diverticulosis without diverticulitis. Minor distension and scattered air-fluid levels of distal ileal small bowel loops. Appendix: The appendix is mildly distended a 10 mm in diameter, with trace edema distally, new since prior, no significant surrounding edema Intraperitoneal space: No free air. No significant fluid collection. Vasculature: No abdominal aortic aneurysm. Lymph nodes: No significantly enlarged lymph nodes. Urinary bladder: No gross wall thickening. Reproductive: Mild prostatic enlargement. Bones/joints: No acute fracture or subluxation. Soft tissues: No suspicious lesions. Other findings: Motion artifact in the abdomen. IMPRESSION: 1. Early or mild acute appendicitis. No perforation or abscess. 2. Minor adjacent distal ileal ileus. Dictated and Authenticated by: Yris Caban MD. Orderin Brian Johnson MD
[2024-11-24] MEDS: PIPERACILLIN/TAZO 4.5 GM in Normal Saline 100 ML IVPB (19:58)
[2024-11-24 20:01] LABS: C & S Indicated? No; WBC Negative HPF (0-5)
[2024-11-24] MEDS: MORPHine 10 MG/ML VIAL 6 MG IVP (20:02)
--- NOTE | 2024-11-24 20:28 | ANES.PREOP_ITS ---
General Info Date of Service Date Performed: 11/24/24 Height: 5 ft 8 in Weight: 68.039 kg Body Mass Index (BMI): 22.8 Meds Allergies and Home Medications Allergies Allergy/AdvReac Type Severity Reaction Status Date / Time sertraline AdvReac Intermediate Diarrhea Verified 11/24/24 18:17 Home Medication ?Medication ?Instructions ?Recorded nystatin-triamcinolone 100,000 1 dorinda topical BID PRN # 3 ea 01/30/17 unit/g-0.1 % topical cream acetaminophen 500 mg tablet 1,000 mg (2 x 500 mg) PO T ID #90 09/11/21 tabs celecoxib 200 mg capsule (Celebrex) 200 mg PO BIDWMEAL #90 tab-caps 02/27/24 metaxalone 800 mg tablet 800 mg PO TID PRN muscle marv n #90 06/23/24 tabs zolpidem 10 mg tablet 10 mg PO HS PRN insomnia #30 10/04/24 tab-caps tamsulosin 0.4 mg capsule (Flomax) 0.4 mg PO DAILY #90 caps 11/19/24 Current Visit Medications: Current Medications Generic Name Dose Route Start Last Admin Trade Name Freq PRN Reason Stop Dose Admin IV Miscellaneous Supplies 1 each 11/24/24 18:45 Iv Access-Emergency Dept IV DIRECTED MEDARDO Iohexol 75 ml 11/24/24 19:30 11/24/24 19:26 Omnipaque 350 Mg/Ml 100 Ml Btl IJ 12/24/24 23:59 75 ml DIRECTED MEDARDO Administration Sodium Chloride 0 ml 11/24/24 18:37 Normal Saline Flush 10 Ml Syr IVP PRN PRN Sodium Chloride 0 ml 11/24/24 20:00 Normal Saline Flush 10 Ml Syr IVP BID MEDARDO Sodium Chloride 0 ml 11/24/24 18:37 Normal Saline 10 Ml Vial IJ DIRECTED PRN Sodium Chloride 50 ml 11/24/24 19:30 11/24/24 19:27 Normal Saline - Diluent 50 Ml Vial IJ 50 ml .FOR DI USE MEDARDO Administration PFSH Active Problems Active Problems: Problem Status Onset Code Abdominal pain Acute R10.9 Acute appendicitis Acute K35.80 Lower urinary tract symptoms (LUTS) Acute R39.9 Short-term memory loss Acute R41.3 Slow heart rate Acute R00.1 Diarrhea Acute R19.7 Chewing tobacco nicotine dependence Acute F17.220 Sacroiliac joint dysfunction of both sides Chronic M53.3 Acquired deviated nasal septum Chronic 07/26/13 J34.2 Gastric motor function disorder Chronic K31.89 History of tobacco use Chronic Z87.891 Hyperlipidemia Chronic E78.5 Insomnia Chronic G47.00 Low back pain Chronic M54.5 Lymphadenopathy Acute R59.1 Migraine Chronic 12/14/09 G43.909 Peripheral neuralgia Chronic M79.2 Restless leg syndrome, uncontrolled Chronic 03/17/15 G25.81 Medical History Medical History COVID-19 08/2020 Lab test positive for detection of COVID-19 virus (~08/2020) Sprain of medial collateral ligament of left knee 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 Chewed tobacco yesterday. Surgical History Surgical History Hx of tonsillectomy Status post arthroscopy of left knee (09/11/21) left knee arthroscopy with partial medial meniscectomy Tear of medial meniscus of left knee, current S/P L knee arthroscopy: 02/16/2021 H/O colonoscopy (~06/2019) [place]- negative exam. 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 Arteriovenous malformation (04/03/90) left frontal; S/P resection Tobacco Smoking/Tobacco Use Status: Former Tobacco Use Smokeless tobacco user: chewing tobacco Passive smoking exposure: Yes Second hand exposure: Yes Alcohol Alcohol Intake: current Alcohol intake frequency: a few times a month Alcohol type: beer and hard liquor Substance Use Substance use: Never Substance use type: does not use Vital Signs and Lab Results Vital Signs Most Recent Vital Signs in EMR: Most Recent Vital Signs Temp Pulse Resp BP Pulse Ox 36.9 C 55 L 20 104/53 L 97 11/24/24 18:16 11/24/24 19:37 11/24/24 18:16 11/24/24 19:37 11/24/24 19:37 Lab Results 11/24/24 18:30 11/24/24 18:30 Complete Blood Count: 2 WBC, (4.4-10.8) 17.53 10^3/uL H Today, 18:30 RBC, (4.36-5.78) 4.73 10^6/uL Today, 18:30 Hgb, (13.5-17.5) 14.4 g/dL Today, 18:30 Hct, (40.0-50.0) 42.7 % Today, 18:30 Plt Count, (130-400) 260 10^3/uL Today, 18:30 Complete Metabolic Panel: 2 Sodium, (136-145) 140 mmol/L Today, 18:30 Potassium, (3.5-5.1) 4.1 mmol/L Today, 18:30 Chloride, (98-107) 102 mmol/L Today, 18:30 Carbon Dioxide, (21.0-32.0) 27.8 mmol/L Today, 18:30 BUN, (7-18) 16 mg/dL Today, 18:30 Creatinine, (0.70-1.30) 1.2 mg/dL Today, 18:30 Est GFR (CKD-EPI 2020), (mL/min/1.73m2) 71.42 Today, 18:30 Calcium, (8.5-10.1) 9.8 mg/dL Today, 18:30 Albumin, (3.4-5.0) 4.2 g/dL Today, 18:30 Glucose, (74-106) 116 mg/dL H Today, 18:30 Liver Function Panel: 2 ALT, (16-63) 22 U/L Today, 18:30 AST, (15-37) 19 U/L Today, 18:30 Pancreas Panel: 2 Lipase, (<78) 24 U/L Today, 18:30 Anesthesia Assessment and Plan Anesthesia History Personal History: No History of Anesthesia Complications Family History: No Family History of Anesthesia Complications Exercise Tolerance Exercise Tolerance: Metabolic Equivalents>4 Cardiac & Pulmonary Exam Cardiac Exam: Normal S1/S2 Heart Sounds Pulmonary Exam: Clear Bilateral Breath Sounds Implantable Cardiac Device Does patient have a Pacemaker or an ICD?: No Airway Exam Known Difficult Airway: No Mallampati Class: 1 Mouth Opening: Normal (> 3cm) Thyromental Distance: Greater than 3 cm Neck Range of Motion: Full ROM Neck Circumference: Normal Teeth Condition: Normal Dentition Airway Comments: High angle narrow palate ASA Classification ASA Score: ASA 2 Emergency Case?: Yes NPO Status NPO Status: NPO Clears >2 hours, Solids >8 hours Anesthesia Plan Resuscitation Status: Full Code Anesthesia Technique: General Anesthesia Airway Planned: Endotracheal Tube Monitors Used: Standard Monitors Preoperative Comments:: 54 yo male present to the ED with abdominal pain to OR with appendicitis. HAs been getting morphine, ketorolac for pain. Sig PMHx: gastric motor dysfunction, RLS, peripheral neuralgia, migraine, AVM with clips 1990, chewing tobacco, occ EtOH. Previous Anes: - knee scope x 2, prop, LMA 4/5, no issues. - colo, prop, natural airway, no issues.
--- NOTE | 2024-11-24 21:01 | W.PM.HP.N ---
Date of service: 11/24/24 Time of Service: 21:01 Assessment and Plan Assessment and plan (1) Acute appendicitis: Status: Acute Assessment and plan: History exam and CAT scan are consistent with acute appendicitis. There is no evidence of perforation on CAT scan. Appendectomy is indicated We discussed laparoscopic appendectomy procedure, its risks, its benefits, its alternatives, and its expectations. We discussed pain, bruising, infection, abscess risk, damage to nearby structures, the need for more procedures. We discussed that we might find nonperforated appendicitis, perforated appendicitis, other abnormal findings, or normal findings. We discussed that I plan to take his appendix out and then additional management as indicated. He asked good questions and verbalized understanding of the plan. To the OR tonight. Obs overnight after. admit if perforated. History of Present Illness Narrative: This is a 54-year-old male who has had right lower quadrant abdominal pain since 2 in the morning. He came to the emergency room and has been diagnosed with acute appendicitis. The pain started in the slightly central lower abdomen and migrated to the right side the pain escalated and became severe very quickly. The patient has had loss of appetite with his symptoms. Walking and pressing in the abdomen makes the pain worse. Pain medications given in the emergency department have relieved the pain. The pain never goes away fully it always comes back. Labs showed leukocytosis of 17,000. CAT scan shows a dilated inflamed appendix at 10 mm. There is no significant periappendiceal edema and no evidence of acute perforation. The patient has a remote history of aneurysm with clipping at age 18. He says he has been healthy unlucky otherwise. He has chronic low back pain from a work-related injury several years ago. Because of the steel clips in his brain from 1990, he is not able to have MRI. He uses Celebrex and Skelaxin for his low back pain. 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) Acquired deviated nasal septum (Chronic 07/26/13) Gastric motor function disorder (Chronic) History of tobacco use (Chronic) Quit in 2001 Hyperlipidemia (Chronic) Insomnia (Chronic) Low back pain (Chronic) Lymphadenopathy (Acute) left posterior cervical node Migraine (Chronic 12/14/09) Hardly ever Peripheral neuralgia (Chronic) Restless leg syndrome, uncontrolled (Chronic 03/17/15) Medical History COVID-19 08/2020 Lab test positive for detection of COVID-19 virus (~08/2020) Sprain of medial collateral ligament of left knee 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 Father Stroke Heart disease Sister No problems noted. Brother Diabetes Maternal Grandfather Heart disease Hyperlipidemia Paternal Grandfather , AGE 51 Heart disease Maternal Grandmother Lung cancer Paternal Grandmother Hyperlipidemia Breast cancer Brother No problems noted. Brother No problems noted. Son No problems noted. Daughter No problems noted. Social History Smoking/Tobacco Use Status: Former Tobacco Use tobacco type: smokeless tobacco Quit Date: 11/03/23 Tobacco: How many years used: 20 Smokeless tobacco user: chewing tobacco Quit status: has quit before Second Hand Exposure: Yes Smoking risk assessment performed?: Yes Alcohol Intake: current Alcohol Intake frequency: a few times a month Alcohol type: beer and hard liquor Drug use: Never Substance use type: does not use Adopted: No Caregiver/Support person: No Household members: spouse and children Housing: house Number of Children: 2 number of grandchildren: 0 Communication Needs: None Education Level: high school Do you need help understanding health information?: Rarely 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 Pets and animals: Yes Pets and animals: dog(s) Sexually active: Yes Do you think of yourself as: straight/heterosexual Current gender identity: male What is your relationship status?: How often do you talk on the phone with friends or family?: twice per week How often do you get together with friends or relatives?: once per week How often do you attend oriental orthodox or christian services?: decline to answer Do you belong to any clubs or organized social groups?: no Panel score (0-1 are the most socially isolated patients): 2 What type of physical activity do you participate in: other Details: constant movement with my job Duration: 60-90 minutes/day Frequency: daily Nisreen/Latter Day: Lutheran Special nisreen needs: No Agree to transfusion: Yes Seatbelt use: always Helmet use: Yes Helmet use: always Drive intox or ride w/intox tilt tray driver: No Working smoke detector in home: Yes Fire extinguisher in home: Yes Carbon monox detector in home: Yes Firearms in home: Yes Firearms unloaded and locked: No (not locked, not loaded) Do you feel safe at home: Yes Do you feel safe in your relationship?: Yes Victim of physical abuse: No Victim of emotional abuse: No Victim of sexual abuse: No Meds Allergies and Home Medications Allergies Allergy/AdvReac Type Severity Reaction Status Date / Time sertraline AdvReac Intermediate Diarrhea Verified 11/24/24 18:17 Home Medications ?Medication ?Instructions ?Recorded ?Confirmed ?Type nystatin-triamcinolone 100,000 1 dorinda topical BID PRN #3 ea 01/30/17 11/24/24 History unit/g-0.1 % topical cream acetaminophen 500 mg tablet 1,000 mg (2 x 500 mg) PO TID #90 09/11/21 11/24/24 Rx tabs celecoxib 200 mg capsule (Celebrex) 200 mg PO BIDWMEAL #90 tab-caps 02/27/24 11/24/24 Rx metaxalone 800 mg tablet 800 mg PO TID PRN muscle pain #90 06/23/24 11/24/24 Rx tabs zolpidem 10 mg tablet 10 mg PO HS PRN insomnia #30 10/04/24 11/24/24 Rx tab-caps tamsulosin 0.4 mg capsule (Flomax) 0.4 mg PO DAILY #90 caps 11/19/24 11/24/24 Rx Exam Narrative Exam Narrative: awake, NAD eomi, MMM midline trachea, neck is symmetric PULM: normal resp effort, equal chest rise with respiration, no wheezing audible CARDIAC: normal PMI, no jvd, regular rate, normal perfusion abdomen is nondistended. TTP RLQ with rovsing sign. he does guard. He does not have diffuse peritonitis. extremities are without deformity, normal movement of all four extremities speech is clear and coherent mood and affect are congruent, no focal neurological deficits skin without rash Results Imaging Abdomen CT scan report/results: report reviewed and image reviewed Labs 11/24/24 18:30 11/24/24 18:30 Labs: Laboratory Results - last 24 hr 11/24/24 11/24/24 18:30 19:36 WBC 17.53 H RBC 4.73 Hgb 14.4 Hct 42.7 MCV 90 MCH 30.4 MCHC 33.7 RDW 12.3 Plt Count 260 MPV 9.3 Immature Gran % 0.6 Neutrophils % 84.0 Lymphocytes % 7.5 Monocytes % 7.7 Eosinophils % 0.0 Basophils % 0.2 Nucleated RBC % 0.0 Absolute Neutrophils 14.73 H Absolute Lymphocytes 1.31 Absolute Monocytes 1.35 H Absolute Eosinophils 0.00 Absolute Basophils 0.04 Sodium 140 Potassium 4.1 Chloride 102 Carbon Dioxide 27.8 Anion Gap 10.2 BUN 16 Creatinine 1.2 Est GFR (CKD-EPI 2020) 71.42 Glucose 116 H Calcium 9.8 Total Bilirubin 1.4 H AST 19 ALT 22 Alkaline Phosphatase 72 Total Protein 7.4 Albumin 4.2 Lipase 24 Urine Color Dark Yellow Urine Clarity Clear Urine pH 5.5 Ur Specific [place] 1.020 Urine Protein Trace Urine Ketones 15 H Urine Blood Moderate H Urine Nitrite Negative Urine Bilirubin Small H Urine Urobilinogen 0.2 Ur Leukocyte Esterase Negative Urine RBC 5-10 H Urine WBC Negative Ur Epithelial Cells Rare Urine Crystals Negative Urine Bacteria Many Urine Casts Negative Urine Mucus Heavy Ur Culture Indicated? No Urine Glucose Negative Last Vital Signs Temp 98.4 F 11/24/24 18:16 Pulse 57 L 11/24/24 20:50 Resp 20 11/24/24 18:16 BP 103/53 L 11/24/24 20:46 Pulse Ox 98 11/24/24 20:50 PAWSS Have you Been Recently Intoxicated or Drunk Within the Last 30 days?: No Have you Ever Experienced Previous Episodes of Alcohol Withdrawal?: No Have you ever Experienced Withdrawal Seizures?: No Have you ever Experienced Delirium Tremens(DT)s?: No Have you ever undergone Alcohol Rehabilitation Treatment (i.e, inpt ot outpatient treatment programs)?: No Have you ever Experienced Blackouts?: No Have you ever Combined Alcohol with other Downers within the last 90 days?: No Have you ever Combined Alcohol with any other Substance of Abuse during the last 90 days?: No Positive Blood Alcohol level on Presentation? [PCS.BAL]: No Evidence of Increased Autonomic Activity (i.e. HR>120, tremor, sweating, agitation, nausea)?: No Result: 0 Time Spent Time spent with Patient: <40 minutes Time was spent: preparing to see the patient(eg.review tests), ordering medications,tests, procedures, referring, communicating with other health palliative care specialist, indepentently interpreting results and counseling the patient
[2024-11-24] MEDS: Lactated Ringers 1,000 ML 30 ML IV (21:16)
--- NOTE | 2024-11-24 21:20 | DSE_ITS ---
Date of service: 11/25/24 Time of Service: 11:02 DS: Diagnosis Discharge Diagnosis (1) Acute suppurative appendicitis: Status: Acute Asessment and Plan: appendectomy completed and antibiotics sent to pharmacy to be continued after discharge. Discharge Plan Disposition Patient Disposition: Home Condition: Stable Discharge Details Reason For Visit: Appendicitis Admit Date/Time: 11/24/24 21:15 Admit Provider: Toshia Gill Attending Provider: Toshia Gill Primary Care Provider: Boni Vidales Hospital Course Hospital Course: 54yo M who had acute appendicitis on ER evaluation. He was taken to surgery where laparoscopic appendectomy was performed without complication. He was observed following the operation. The appendix was suppurative so antibiotics were continued. He was prepared for discharge home. Discharge instructions and return precautions were reviewed. Recommendations for Follow Up Recommended tests to be ordered by follow up provider: None, surgeon to do post operative care visit. Home Meds and New Rx's Prescriptions: New hydrocodone-acetaminophen 5-325 mg tablet 1 tab PO Q6H Qty: 12 0RF amoxicillin-pot clavulanate [Augmentin] 500-125 mg tablet 1 tab PO BID Qty: 14 0RF No Action nystatin-triamcinolone 15 GM cream 1 dorinda Topical BID PRNQty: 3 celecoxib [Celebrex] 200 mg capsule 200 mg PO BIDWMEAL Qty: 90 4RF Rx Instructions: TAKE WITH FOOD. metaxalone 800 mg tablet 800 mg PO TID PRN (Reason: muscle pain) Qty: 90 3RF zolpidem 10 mg tablet 10 mg PO HS PRN (Reason: insomnia) Qty: 30 2RF tamsulosin [Flomax] 0.4 mg capsule 0.4 mg PO DAILY Qty: 90 3RF acetaminophen 500 mg tablet 1,000 mg PO TID Qty: 90 0RF Discharge Instructions Instructions: Appendectomy, Laparoscopic Surgery Additional Instructions: Shower 11/26/24. Wash gently over steri-strips with soapy hands, rinse, pat dry. Don't peel strips or submerge them under water. The longer they stay on, the nicer the scars will heal. Ok to walk, climb stairs, and resume normal activities of daily living. Do not lift/push/pull more than 20lb for 4 weeks. Diet as tolerated. Cmplete all antibiotics as prescribed. Call or return for fever or incisional problems. Activity:: see above. Equipment/Supplies:: No Equipment Needed Diet:: As Tolerated Discharge Orders Discharge Orders: Discharge Order (Routine); Ordered 11/25/24 Ordered By: Toshia Gill DS: Summary Time Spent with Patient providing and/or coordinating discharge services: Less than 30 minutes Status at Discharge Functional status at discharge: independent ambulation Overall status at discharge: patient is progressing back to baseline Mental Status: mental status grossly normal Speech and Movement: speech and movement normal Mood: congruent mood Affect: normal affect Exam Psych Mental Status: mental status grossly normal Speech and Movement: speech and movement normal Mood: congruent mood Affect: normal affect DS: Data Vitals/I&O Vitals and I&O: Vital Signs Temperature 98.4 F 11/24/24 18:16 Pulse 57 L 11/24/24 20:50 Respiratory Rate 20 11/24/24 18:16 Blood Pressure 103/53 L 11/24/24 20:46 Blood Pressure Mean 66 11/24/24 20:46 Blood Pressure Position Sitting 11/24/24 18:16 Pulse Oximetry 98 11/24/24 20:50 Oxygen Delivery Method Room Air 11/24/24 18:16 Oxygen Flow Rate 0 11/24/24 18:16 Intake & Output 11/23/24 11/24/24 11/24/24 23:59 11:59 23:59 Intake Total 100 / 100 Balance 100 / 100 Weight 150 lb Intake: IV 100 / 100 Data Completed and Pending Labs on day of discharge: Labs from last 24 hours 11/24/24 11/24/24 19:36 18:30 WBC 17.53 H RBC 4.73 Hgb 14.4 Hct 42.7 MCV 90 MCH 30.4 MCHC 33.7 RDW 12.3 Plt Count 260 MPV 9.3 Immature Gran % 0.6 Neutrophils % 84.0 Lymphocytes % 7.5 Monocytes % 7.7 Eosinophils % 0.0 Basophils % 0.2 Nucleated RBC % 0.0 Absolute Neutrophils 14.73 H Absolute Lymphocytes 1.31 Absolute Monocytes 1.35 H Absolute Eosinophils 0.00 Absolute Basophils 0.04 Sodium 140 Potassium 4.1 Chloride 102 Carbon Dioxide 27.8 Anion Gap 10.2 BUN 16 Creatinine 1.2 Est GFR (CKD-EPI 2020) 71.42 Glucose 116 H Calcium 9.8 Total Bilirubin 1.4 H AST 19 ALT 22 Alkaline Phosphatase 72 Total Protein 7.4 Albumin 4.2 Lipase 24 Urine Color Dark Yellow Urine Clarity Clear Urine pH 5.5 Ur Specific [place] 1.020 Urine Protein Trace Urine Ketones 15 H Urine Blood Moderate H Urine Nitrite Negative Urine Bilirubin Small H Urine Urobilinogen 0.2 Ur Leukocyte Esterase Negative Urine RBC 5-10 H Urine WBC Negative Ur Epithelial Cells Rare Urine Crystals Negative Urine Bacteria Many Urine Casts Negative Urine Mucus Heavy Ur Culture Indicated? 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) Acquired deviated nasal septum (Chronic 07/26/13) Gastric motor function disorder (Chronic) History of tobacco use (Chronic) Quit in 2001 Hyperlipidemia (Chronic) Insomnia (Chronic) Low back pain (Chronic) Lymphadenopathy (Acute) left posterior cervical node Migraine (Chronic 12/14/09) Hardly ever Peripheral neuralgia (Chronic) Restless leg syndrome, uncontrolled (Chronic 03/17/15) Medical History COVID-19 08/2020 Lab test positive for detection of COVID-19 virus (~08/2020) Sprain of medial collateral ligament of left knee 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 Father Stroke Heart disease Sister No problems noted. Brother Diabetes Maternal Grandfather Heart disease Hyperlipidemia Paternal Grandfather , AGE 51 Heart disease Maternal Grandmother Lung cancer Paternal Grandmother Hyperlipidemia Breast cancer Brother No problems noted. Brother No problems noted. Son No problems noted. Daughter No problems noted. Social History Smoking/Tobacco Use Status: Former Tobacco Use tobacco type: smokeless tobacco Quit Date: 11/03/23 Tobacco: How many years used: 20 Smokeless tobacco user: chewing tobacco Quit status: has quit before Second Hand Exposure: Yes Smoking risk assessment performed?: Yes Alcohol Intake: current Alcohol Intake frequency: a few times a month Alcohol type: beer and hard liquor Drug use: Never Substance use type: does not use Adopted: No Caregiver/Support person: No Household members: spouse and children Housing: house Number of Children: 2 number of grandchildren: 0 Communication Needs: None Education Level: high school Do you need help understanding health information?: Rarely 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 Pets and animals: Yes Pets and animals: dog(s) Sexually active: Yes Do you think of yourself as: straight/heterosexual Current gender identity: male What is your relationship status?: How often do you talk on the phone with friends or family?: twice per week How often do you get together with friends or relatives?: once per week How often do you attend muslim or worship services?: decline to answer Do you belong to any clubs or organized social groups?: no Panel score (0-1 are the most socially isolated patients): 2 What type of physical activity do you participate in: other Details: constant movement with my job Duration: 60-90 minutes/day Frequency: daily Nisreen/Nondenominational: Alevism Special nisreen needs: No Agree to transfusion: Yes Seatbelt use: always Helmet use: Yes Helmet use: always Drive intox or ride w/intox courtesy van driver: No Working smoke detector in home: Yes Fire extinguisher in home: Yes Carbon monox detector in home: Yes Firearms in home: Yes Firearms unloaded and locked: No (not locked, not loaded) Do you feel safe at home: Yes Do you feel safe in your relationship?: Yes Victim of physical abuse: No Victim of emotional abuse: No Victim of sexual abuse: No Time Spent with Patient Time Spent with Patient: <45 minutes Time was spent: preparing to see the patient(eg.review tests), ordering me dications,tests, procedures and counseling the patient
--- NOTE | 2024-11-24 22:10 | APP_PTH ---
PATIENT: Naveed England LOC: U#:[id number] AGE/SX: 54/M ROOM: RE11/24/[address]: Toshia Gill MD : 1970 BED: A DIS: 11/25/2024 SPEC #: [id number] RECD: 11/25/24 12:54 STATUS: CASSANDRA REQ #: [id number] ELSIE: 11/24/24 22:[address]: Toshia Gill DEPT: Surgical Specimen RECD BY: Lala Lehman ENTERED: 11/25/24 12:55 SP TYPE: Appendix OTHR DR: Boni Vidales, WILLY Tissues: 1 - APPENDIX NOT INCIDENTAL Procedures: IMMUNOPEROXIDASE STAIN GROSS AND MICRO LEVEL 3 Comments: [id number]
--- NOTE | 2024-11-24 22:24 | ROE_ITS ---
Operative Note Operative Note PRE-OP DIAGNOSIS: Acute appendicitis POST-OP DIAGNOSIS: other (Acute suppurative appendicitis) PROCEDURE: Laparoscopic appendectomy SURGEON: Toshia Gill SIMULATION TECHNICIAN: Ras Vizcarra ANESTHESIA TYPE: Local By Surgeon and General LMA/ETT Refer to Anesthesia Record ESTIMATED BLOOD LOSS: 40 PATHOLOGY: other (appendix) COMPLICATIONS: None Procedure Description: Preoperative Diagnosis: Acute appendicitis Postoperative Diagnosis: Acute suppurative appendicitis Procedure: Laparoscopic appendectomy Surgeon: Toshia Gill MD Facilities And Grounds Director:ANGEL Mendieta EBL: 40mL Anesthesia: GETA + local Specimen: Appendix Complications: None Procedure Description: This is a 54-year-old male who was evaluated in the emergency department for abdominal pain. He had leukocytosis and a CAT scan showing acute appendicitis. Appendectomy was indicated. We discussed laparoscopic appendectomy procedure at length, including a discussion about the risks, the benefits, the alternatives, and the expectations. Informed consent was obtained and the patient was taken to the operating room. He was placed supine on the operating table. SCDs were placed and all pressure points were padded appropriately. General anesthesia was induced. The abdomen was clipped, prepped, and draped in the usual sterile fashion. Timeout was performed. Local anesthetic was infiltrated into the skin and subcutaneous tissues below the umbilicus. An incision was made with a scalpel. The umbilical stalk was grasped and elevated and the fascia cleared with cautery. An incision was made in the fascia and a Rosalia clamp was used to enter the peritoneum. A finger sweep confirmed no structures against the abdominal wall. A Pang trocar was introduced and the abdomen was insufflated to 15 mmHg. Initial laparoscopy confirmed no injury to the intra-abdominal structures. 2 additional 5 mm ports were placed under direct visualization, 1 in the lower midline and 1 in the left lower abdomen. The patient was placed in Trendelenburg position and rotated toward the left. The cecum was identified and followed to the location of the appendix. The base of the appendix appeared normal for a length of 1.5 cm. Distal to that the appendix was dilated and abnormally thickened. There was evidence of fat change and purulence suggestive of suppurative appendicitis. Small amount of purulent fluid next to the appendix was suctioned clean. The appendix was grasped and elevated. A [place] dissector was used to dissected the base of the appendix from the cecum and fat. A bowel load stapler was used to transect the appendix at the base against the cecum. Next the mesoappendix was freed and cleared and a vascular load stapler was used to transect the mesoappendix. The appendix was placed into an Endo Catch bag. Hemostasis was assured at the staple lines. The pelvis was suctioned clean. The appendectomy site was examined for hemostasis and it was confirmed. The appendix was removed through the umbilical site. The abdomen was desuffla fidencio. The 5mm ports were removed. The umbilical fascia was closed with an 0 Vicryl stitch in a [id number] fashion. The remainder of the local anesthetic was infiltrated at the incision sites. The skin was washed and dried. The skin at all 3 sites was closed with 4-0 Monocryl simple interrupted subcuticular sutures. All sponge and instrument counts were correct at the end of the case. The patient tolerated the procedure well. The patient extubated in the operating room and transferred to the recovery room in stable condition. No complications. Date of Procedure: 11/24/24
[2024-11-24] MEDS: Bupivacaine 0.25% Pres-Free W/EPI 30 ML VIAL (22:41)
--- NOTE | 2024-11-24 23:02 | W.ANESPOSTOP ---
Postoperative Evaluation Date, Time and Location Date Performed: 11/24/24 Time Performed: 23:02 Patient Location: PACU Vital Signs Most Recent Imported Vital Signs: Most Recent Vital Signs Temp Pulse Resp BP Pulse Ox 36.6 C 69 16 112/61 100 11/24/24 23:00 11/24/24 23:00 11/24/24 23:00 11/24/24 22:56 11/24/24 23:00 Pain Score Most Recent Pain Score: Most Recent Pain Score Pain Level 0 11/24/24 22:51 Assessment Mental Status: Awake (Alert & Oriented to Patient Baseline) Airway and Respiratory Function: Patent airway with normal (patient baseline) respiratory exam Cardiovascular Function: Hemodynamically Stable Hydration Status: Adequately Hydrated Nausea & Vomiting: No Nausea or Vomiting Pain: Pain is tolerable per patient Peripheral Nerve Block: Patient did not receive a nerve block
--- NOTE | 2024-11-24 23:37 | W.PC.ACHO ---
Registration Status: REG SDC Primary Language: Preferred Language: Khmer ED Information & Data Chief Complaint Abd Prob 11/24/24 19:14 Triage Note Generalized abd pain 11/24/24 18:13 starting 0200 today. pain improved with hot shower. not made worse with eating. diarrhea and vomiting this morning around 0930. Recently prescribed Tamsulosin. Medical / Surgical History (Last Reviewed 11/24/24 @ 21:06 by Toshia Gill MD) COVID-19 Lab test positive for detection of COVID-19 virus (~08/2020) Sprain of medial collateral ligament of left knee AVM (arteriovenous malformation) brain Hydronephrosis (04/03/00) (Last Reviewed 11/24/24 @ 21:06 by Toshia Gill MD) Hx of tonsillectomy Status post arthroscopy of left knee (09/11/21) Tear of medial meniscus of left knee, current H/O colonoscopy (~06/2019) History of elbow surgery Malignant neoplasm of skin Arteriovenous malformation (04/03/90) Most Recent Vital Signs Temperature 36.6 C 11/24/24 23:00 Pulse 52 L 11/24/24 23:06 Pulse 68 11/24/24 23:00 Respiratory Rate 16 11/24/24 23:00 Blood Pressure 102/56 L 11/24/24 23:06 Blood Pressure Mean 70 11/24/24 23:06 Blood Pressure Position Sitting 11/24/24 18:16 Pulse Oximetry 100 11/24/24 23:00 Respiratory End-tidal CO2 30 11/24/24 22:56 Oxygen Delivery Method Nasal Cannula 11/24/24 22:51 Oxygen Flow Rate 0 11/24/24 22:36 Pain Level 0 11/24/24 22:51 Allergies sertraline Adverse Reaction (Intermediate, Verified 11/24/24 18:17) Diarrhea Active Medications Generic Name Dose Route Start Last Admin Trade Name Freq PRN Reason Stop Dose Admin Ringer's Solution 1,000 mls @ 30 mls/hr 11/24/24 21:15 11/24/24 22:39 IV 30 mls/hr INFUSION MEDARDO Infusion Iohexol 75 ml 11/24/24 19:30 11/24/24 19:26 Omnipaque 350 Mg/Ml 100 Ml Btl IJ 12/24/24 23:59 75 ml DIRECTED MEDARDO Administration Sodium Chloride 50 ml 11/24/24 19:30 11/24/24 19:27 Normal Saline - Diluent 50 Ml Vial IJ 50 ml .FOR DI USE MEDARDO Administration IV IV Catheter Type [Left Peripheral IV Antecubital] IV Catheter Gauge [Left 20 Antecubital] Diet Orders Category Date Time Status Regular/Normal [DIET] Nutrition 11/25/24 Breakfast Ordered Diagnostics 11/24/24 11/24/24 Range/Units 19:36 18:30 WBC 17.53 H (4.4-10.8) 10^3/uL RBC 4.73 (4.36-5.78) 10^6/uL Hgb 14.4 (13.5-17.5) g/dL Hct 42.7 (40.0-50.0) % MCV 90 (80-95) fL MCH 30.4 (27.0-33.0) pg MCHC 33.7 (32.0-36.0) % RDW 12.3 (11.8-14.1) % Plt Count 260 (130-400) 10^3/uL MPV 9.3 (8.0-11.0) fL Immature Gran % 0.6 % Neutrophils % 84.0 % Lymphocytes % 7.5 % Monocytes % 7.7 % Eosinophils % 0.0 % Basophils % 0.2 % Nucleated RBC % 0.0 (0.0-0.3) % Absolute Neutrophils 14.73 H (1.2-6.7) 10^3/uL Absolute Lymphocytes 1.31 (1.2-3.4) 10^3/uL Absolute Monocytes 1.35 H (0.1-0.8) 10^3/uL Absolute Eosinophils 0.00 (0.0-0.7) 10^3/uL Absolute Basophils 0.04 (0.0-0.2) 10^3/uL Sodium 140 (136-145) mmol/L Potassium 4.1 (3.5-5.1) mmol/L Chloride 102 (98-107) mmol/L Carbon Dioxide 27.8 (21.0-32.0) mmol/L Anion Gap 10.2 (3-11) mmol/L BUN 16 (7-18) mg/dL Creatinine 1.2 (0.70-1.30) mg/dL Est GFR (CKD-EPI 2020) 71.42 (mL/min/1.73m2) Glucose 116 H (74-106) mg/dL Calcium 9.8 (8.5-10.1) mg/dL Total Bilirubin 1.4 H (0.2-1.0) mg/dL AST 19 (15-37) U/L ALT 22 (16-63) U/L Alkaline Phosphatase 72 (46-116) U/L Total Protein 7.4 (6.4-8.2) g/dL Albumin 4.2 (3.4-5.0) g/dL Lipase 24 (<78) U/L Urine Color Dark Yellow (Yellow) Urine Clarity Clear (Clear) Urine pH 5.5 (5-8) Ur Specific [place] 1.020 (1.005-1.025) Urine Protein Trace (Neg-Trace) mg/dL Urine Ketones 15 H (Negative) mg/dL Urine Blood Moderate H (Negative) Urine Nitrite Negative (Negative) Urine Bilirubin Small H (Negative) Urine Urobilinogen 0.2 (Up to 0.2) mg/dL Ur Leukocyte Esterase Negative (Negative) Urine RBC 5-10 H (0-2) HPF Urine WBC Negative (0-5) HPF Ur Epithelial Cells Rare (Negative) HPF Urine Crystals Negative (Negative) HPF Urine Bacteria Many (Negative) HPF Urine Casts Negative (Negative) LPF Urine Mucus Heavy (Negative) Ur Culture Indicated? No Urine Glucose Negative (Negative) mg/dL Intake and Output - 24 Hour Total 11/24/24 18:04 thru 11/24/24 22:51 Intake Total 600 Output Total 40 Balance 560 Weight 68.039 kg Intake: IV 600 Output: Estimated Blood Loss 40 Other: Emesis Description None Falls Risk Assessment History of Falls No History 11/24/24 18:16 Contributing Factors No Factors 11/24/24 18:16 Ambulatory Aids Independent 11/24/24 18:16 Tubes/Lines None 11/24/24 18:16 Gait Evaluation No gait disturbance 11/24/24 18:16 Cognition No cognitive impairment 11/24/24 18:16 Fall Total Score 0 11/24/24 18:16 Level of Risk Standard/Low Risk 11/24/24 18:16 Problems (Last Reviewed 11/24/24 @ 21:06 by Toshia Gill MD) Abdominal pain (Acute) Acute appendicitis (Acute) v v v v v v v v v Sending and/or Receiving Nurses: Please use comment section below to note any information pertinent to the patient hand-off not included above. Information / Comments: Pt arrived to ED c/o of RUQ pain for most of the day. CT + for appendicitis. Pt to OR for Lap Appy. Celebrex, zosyn and tylenol given. Pt has 3 lap sites with steri strips to abd. Pain is tolerated at a 3/10. No nausea/vomitting at this time. VSS while in PACU. Report received from: Mciki Heller RN
[2024-11-25 00:11] VITALS: BP 91/62; PULSE 57; RESP 18; TEMP 36.9; O2SAT 98
[2024-11-25] MEDS: Lactated Ringers 1,000 ML 75 ML IV (00:38)
[2024-11-25] MEDS: Normal Saline Flush 10 ML SYR IVP ×3 (00:39→08:00)
[2024-11-25 01:10] VITALS: BP 91/60; PULSE 49; RESP 18; TEMP 36.6; O2SAT 96
[2024-11-25 02:40] VITALS: BP 92/59; PULSE 49; RESP 18; TEMP 36.4; O2SAT 98
[2024-11-25] MEDS: PIPERACILLIN/TAZO 3.375 GM in Normal Saline 50 ML IVPB ×2 (02:41→08:00)
[2024-11-25 04:39] VITALS: BP 91/60; PULSE 47; RESP 19; TEMP 36.5; O2SAT 96
[2024-11-25] MEDS: HYDROcodone 5/Acetaminophen 325 TAB PO (04:41)
[2024-11-25 08:09] VITALS: BP 90/59; PULSE 46; RESP 16; TEMP 36.8; O2SAT 95
--- NOTE | 2024-11-25 11:19 | PDOC.CMDIS ---
Date of service: 11/25/24 Time of Service: 13:24 LACE Index Scoring Tool Questions: Length of Stay (in days): 1 Was the patient admitted via the E.D.?: Yes E.D. Visits: 2 Answers: Total Score: 6 Risk of Readmission: Low Risk Care Management Discharge Plan Reason for Hospitalization: appendicitis Discharge Plan: Naveed is being discharged home today with no new services. He will follow up with his community providers, surgical team, and plan of care. He will transport via private vehicle by his family. Patient/Family Education Needs: Review of discharge instructions, activity, limitations, and plan of care. Discuss ask me three.
== END 2024-11-25 12:43 | disposition home or self-care (01) ==
LOC: ER 19:59 → DSU 20:59 → MS 23:36
PROVIDERS: Admitting Provider Surgery; Emergency Provider Emergency Medicine; PCP Nurse Practitioner Family; Visit Provider Surgery
PROC: 0DTJ4ZZ Resection of Appendix, Percutaneous Endoscopic Approach (ICD-10-PCS; CPT 44970; principal; 2024-11-24 20:30)
DX: K35.890 Other acute appendicitis without perforation or gangrene (principal); Z79.899 Other long term (current) drug therapy; E78.5 Hyperlipidemia, unspecified; G47.00 Insomnia, unspecified; G43.909 Migraine, unspecified, not intractable, without status migrainosus; G25.81 Restless legs syndrome; F17.220 Nicotine dependence, chewing tobacco, uncomplicated; R00.1 Bradycardia, unspecified; M54.50 Low back pain, unspecified; G62.9 Polyneuropathy, unspecified
CPT/HCPCS: 44970; 36415; 80053; 83690; 96361; 96365; 96366; 96375; 99285; 74177; 81003; 81015; 85025; 88304; 88361; G0378; J0131; J1100; J1885; J2003; J2270; J2405; J2543; J2704; J3490

== ENCOUNTER 2025-01-20 04:28 | Outpatient (CLI) | payer BC, SELFPAY ==
[2025-01-20 15:54] LABS: HCT 40.1 % (40.0-50.0); HGB 13.9 g/dL (13.5-17.5); MCH 30.9 pg (27.0-33.0); MCHC 34.7 % (32.0-36.0); MCV 89 fL (80-95); MPV 9.1 fL (8.0-11.0); Platelet Count 279 10^3/uL (130-400); RBC 4.50 10^6/uL (4.36-5.78); RDW 12.1 % (11.8-14.1); RDW-SD 39.5 fL; WBC 8.15 10^3/uL (4.4-10.8)
[2025-01-20 17:10] LABS: ALT 22 U/L (16-63); AST 25 U/L (15-37); Albumin 4.2 g/dL (3.4-5.0); Alkaline Phosphatase 72 U/L (46-116); Anion Gap 8.3 mmol/L (3-11); BUN 21 mg/dL (7-18); Bilirubin, Total 0.7 mg/dL (0.2-1.0); CO2 27.7 mmol/L (21.0-32.0); Calcium 10.0 mg/dL (8.5-10.1); Chloride 104 mmol/L (98-107); Estimated GFR 71.42 (mL/min/1.73m2); Glucose 97 mg/dL (74-106); Potassium 4.1 mmol/L (3.5-5.1); Sodium 140 mmol/L (136-145); TSH (W/Ref FT4) 1.27 uIU/mL (0.36-3.74); Total Protein 7.2 g/dL (6.4-8.2); Vitamin B12 429 pg/mL (193-986); Vitamin D 25 Total 33 ng/mL (30-100)
[2025-01-21 09:54] LABS: HIV-1/2 Ag & Ab Screen Negative (Negative)
[2025-01-21 11:46] LABS: Syphilis Serology (RPR) Negative (Negative)
== END 2025-01-20 04:29 | disposition home or self-care (01) ==
LOC: LBO 04:29
PROVIDERS: PCP Nurse Practitioner Family; Visit Provider Nurse Practitioner Family
DX: R41.3 Other amnesia (principal); E03.9 Hypothyroidism, unspecified
CPT/HCPCS: 36415; 80053; 82306; 85027; 87389; 82607; 84443; 86592